=== PATIENT | male | born 1975 | race Caucasian/White ===

== ENCOUNTER 2021-09-22 21:32 | Inpatient (IN) | payer BC, SELFPAY ==
[2021-09-22 21:48] VITALS: BP 112/91; PULSE 121; RESP 18; TEMP 36.1; O2SAT 94; BMI 25.8
[2021-09-22 22:00] VITALS: BP 132/98; PULSE 120; RESP 18; O2SAT 95
[2021-09-22 22:30] VITALS: BP 116/83; PULSE 121; RESP 18; O2SAT 92
[2021-09-22] MEDS: 0.9 % SODIUM CHLORIDE 1000 ml 1,000 ML IV (23:10)
--- NOTE | 2021-09-22 23:12 | ED.ABDPAIN ---
HPI - Abdominal Pain General Chief Complaint: Abdominal Pain Stated Complaint: Abdominal Pain Time Seen by Provider: 09/22/21 23:07 History of Present Illness HPI narrative: This 46-year-old male comes in with severe upper epigastric abdominal pain radiating into his back. 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 He does have a history of alcohol use but denies any use recently. He states that pain began at 3:00 a.m. this morning, about 20 hours prior to arrival. Related Data Home Medications Medication Instructions Recorded Confirmed atorvastatin 20 mg tablet mg 09/22/21 citalopram 20 mg tablet mg 09/22/21 cyanocobalamin (vitamin B-12) mcg 09/22/21 1,000 mcg tablet [id number] cap PO 09/22/21 24,000-76,000-120,000 unit capsule,delayed rel (Creon) lisinopril 10 mg tablet mg 09/22/21 metformin 500 mg tablet mg 09/22/21 omeprazole 20 mg capsule,delayed mg 09/22/21 release omeprazole 40 mg capsule,delayed mg 09/22/21 release propranolol 80 mg capsule,24 mg PO 09/22/21 hr,extended release Allergies Allergy/AdvReac Type Severity Reaction Status Date / Time No Known Drug Allergies Allergy Verified 09/22/21 21:41 Review of Systems Status of ROS Reports: 10 or more systems reviewed and unremarkable except as noted in History and below Narrative Constitutional: No fevers, no weight gain or loss. Eyes: No discharge. No vision changes. HENT: No congestion, no sore throat, no ear pain. Cardiovascular: No chest pain, no palpitations. Respiratory: No shortness of breath, no wheezes, no cough. Gastrointestinal: No vomiting, no diarrhea. Severe upper epigastric abdominal pain radiating through to the back. Genitourinary: No dysuria, no hematuria. Musculoskeletal: Normal range of motion. Skin: No rashes, no pruritis. Neurological: No dizziness, weakness, sensory change, speech change. Endo/Heme/Allergies: No bruising or bleeding. No polydipsia. Pysch: no suicidality, no anxiety, no insomnia. All other systems reviewed and are negative. [facility] Medical History Anxiety CAD (coronary artery disease) Chronic pancreatitis Diabetes type 2, controlled Hyperlipidemia Hypertension Surgical History No significant past surgical history Social History Smoking Status: Current every day smoker What tobacco products do you use: cigarettes Second hand tobacco smoke exposure: No How often do you have a drink containing alcohol: 2-4 times a month How many standard drinks containing alcohol do you have on a typical day: 3 or 4 How often do you have six or more drinks on one occasion: Never AUDIT-C Alcohol total score: 3 Non-prescribed substance use: denies use Exam Narrative: Exam Narrative: Constitutional: Well-developed, well-nourished, no acute distress. HEENT: Normocephalic, atraumatic. Neck: Normal range of motion. Nontender. Supple. Heart: Regular. No murmurs. Normal rate. Intact distal pulses. Lungs: Clear to auscultation. No chest discomfort. No wheezes, rhonchi, or rales. Abdomen: Decreased bowel sounds. Severe tenderness in the upper abdomen radiating through to the back. No obvious rebound tenderness. Genitalia: Deferred. Back: No midline tenderness. Normal range of motion. Extremities: Normal range of motion. No injury. Skin: Intact. No rash. Warm. No erythema or pallor. Neurologic: No altered sensation. No weakness. Alert and oriented. Psychiatric: No suicidality. No anxiety or depression. No insomnia. Nursing notes and vitals signs are reviewed. Const: Vital Signs, click to edit/add: Vital Signs - 24 hr 09/22/21 21:48 09/22/21 22:00 09/22/21 22:30 Temperature 96.9 F L Pulse Rate [Pulse Oximeter] 121 H 120 H 121 H Respiratory Rate 18 18 18 Blood Pressure [Le ft Upper Arm] 112/91 H 132/98 H 116/83 Pulse Oximetry 94 95 92 09/22/21 23:30 Temperature Pulse Rate [Pulse Oximeter] 101 H Respiratory Rate 18 Blood Pressure [Le ft Upper Arm] 127/84 Pulse Oximetry 95 Course Vital Signs Vital signs: Initial Vital Signs Temperature 96.9 F L 09/22/21 21:48 Temperature Source Temporal Artery Scan 09/22/21 21:48 Pulse Rate 121 H 09/22/21 21:48 Respiratory Rate 18 09/22/21 21:48 Blood Pressure 112/91 H 09/22/21 21:48 Blood Pressure Mean 98 09/22/21 21:48 Pulse Oximetry 94 09/22/21 21:48 Oxygen Delivery Method 09/22/21 21:48 Vital Signs Temperature 96.9 F L 09/22/21 21:48 Pulse Rate 121 H 09/22/21 21:48 Respiratory Rate 18 09/22/21 21:48 Blood Pressure 112/91 H 09/22/21 21:48 Pulse Oximetry 94 09/22/21 21:48 Temperature 96.9 F L 09/22/21 21:48 Pulse Rate 101 H 09/22/21 23:30 Respiratory Rate 18 09/22/21 23:30 Blood Pressure 127/84 09/22/21 23:30 Pulse Oximetry 95 09/22/21 23:30 MDM - Abdominal Pain MDM Narrative Medical decision making narrative: This patient has a history of recurrent and chronic pancreatitis. His symptoms today feel like a flare-up of pancreatitis. He states that he does not normally take any pain medications. He denies using any street drugs or alcohol. An IV is established where he received a L of normal saline, 4 mg of Zofran, and 0.5 mg of Dilaudid. Later he received an additional dose of Dilaudid 0.5 mg. Lab results returned with several remarkable findings including lipase that around 4700, glucose at 2:20 a.m., and white count at 24,000. I did initiate a call to the overnight [facility] service for hospital admission. The returned call is pending at the end of my shift. The patient is agreeable to come into the hospital for further evaluation and treatment. Lab Data Labs: Lab Results 09/22/21 09/22/21 09/22/21 Range/Units 23:10 23:10 23:10 WBC 24.39 H (4.50-11.00) K/uL RBC 5.48 (4.30-5.90) m/uL Hgb 17.8 H (13.5-17.5) gm/dL Hct 51.2 (37.0-53.0) % MCV 93 (80-100) fL MCH 33 (26-34) pg MCHC 35 (32-36) gm/dL RDW Coeff of Marquise 12.6 (11.5-15.5) % Plt Count 459 H (140-440) K/uL Neut % (Auto) 86.8 H (42.0-72.0) % Lymph % (Auto) 7.0 L (20-44) % Louisa % (Auto) 5.0 (0.0-11.0) % Eos % (Auto) 0.0 (0.0-7.0) % Baso % (Auto) 0.1 (0.0-3.0) % Neut # (Auto) 21.20 H (1.7-7.0) K/uL Lymph # (Auto) 1.70 (0.90-2.90) K/uL Louisa # (Auto) 1.20 H (0.00-0.90) K/UL Eos # (Auto) 0.00 (0.00-0.50) K/uL Baso # (Auto) 0.00 (0.00-0.30) K/uL Abs Immat Gran (auto) 0.27 (0.00-0.30) K/uL Sodium 136 (135-149) mmol/L Potassium 5.2 H (3.6-5.1) mmol/L Chloride 100 (96-114) mmol/L Carbon Dioxide 21 (20-32) mmol/L BUN 34 H (5-24) mg/dL Creatinine 1.3 (0.5-1.5) mg/dL Estimated Creat Clear 69.49 Estimated GFR 68 ml/min Glucose 220 H (60-115) mg/dL Calcium 9.6 (8.4-10.6) mg/dL Total Bilirubin 1.1 (0.1-1.5) mg/dL Direct Bilirubin 0.4 (0.0-0.5) mg/dL AST 38 H (12-35) U/L ALT 74 H (4-50) U/L Alkaline Phosphatase 97 (40-150) U/L Total Protein 7.4 (6.0-8.3) g/dL Albumin 4.9 (3.3-5.0) g/dL Lipase 4716 H (23-300) U/L Discharge Plan Discharge Clinical Impression: Pancreatitis Patient Disposition: Admitted As Inpatient Condition: Unchanged Prescriptions: No Action metformin 500 mg tablet 0RF Label Comments: TAKE 1 TABLET BY MOUTH TWICE DAILY FOR 1 WEEK, THEN 2 TABLETS IN THE MORNING & 1 TABLET WITH SUPPER DAILY FOR A WEEK, & THEN 2 TABLETS TWICE DAILY WITH MEALS atorvastatin 20 mg tablet 0RF Label Comments: TAKE 1 TABLET BY MOUTH AT BEDTIME cyanocobalamin (vitamin B-12) 1,000 mcg tablet 0RF Label Comments: TAKE 1 TABLET BY MOUTH ONCE DAILY omeprazole 40 mg capsule,delayed release(DR/EC) 0RF citalopram 20 mg tablet 0RF Label Comments: TAKE 1/2 (ONE-HALF) TABLET BY MOUTH ONCE DAILY FOR 7 DAYS THEN 1 ONCE DAILY lisinopril 10 mg tablet 0RF Label Comments: TAKE 1 TABLET BY MOUTH ONCE DAILY propranolol 80 mg capsule,extended release 24 hr PO 0RF omeprazole 20 mg capsule,delayed release(DR/EC) 0RF Hold Instructions: taking 40mg Label Comments: TAKE 1 CAPSULE BY MOUTH ONCE DAILY 30 MINUTES PRIOR TO BREAKFAST Creon 24,000-76,000 -120,000 unit capsule,delayed release(DR/EC) PO 0RF Follow Up/Referrals: Provider,Not a Local [Primary Care Provider] -
[2021-09-22] MEDS: HYDROmorphone 0.5 mg/0.5 ml inj IVP (23:21)
[2021-09-22] MEDS: ONDANSETRON 2 MG/ML inj 4 MG IVP (23:23)
[2021-09-22 23:25] LABS: Basophils Percent Auto 0.1 % (0.0-3.0); Hematocrit 51.2 % (37.0-53.0); Hemoglobin* 17.8 gm/dL (13.5-17.5); Immature Granulocytes Abs Auto 0.27 K/uL (0.00-0.30); Mean Corpuscular HGB Conc 35 gm/dL (32-36); Mean Corpuscular Hemoglobin 33 pg (26-34); Mean Corpuscular Volume 93 fL (80-100); Neutrophils Percent Auto 86.8 % (42.0-72.0); Platelet Count* 459 K/uL (140-440); RDW Coefficient of Variation % 12.6 % (11.5-15.5); Red Blood Count 5.48 m/uL (4.30-5.90); White Blood Count* 24.39 K/uL (4.50-11.00)
[2021-09-22 23:27] LABS: Slide Review Reflex No
[2021-09-22 23:30] VITALS: BP 127/84; PULSE 101; RESP 18; O2SAT 95
[2021-09-22 23:40] LABS: Chloride* 100 mmol/L (96-114); Potassium* 5.2 mmol/L (3.6-5.1); Sodium* 136 mmol/L (135-149)
[2021-09-22 23:41] LABS: Albumin* 4.9 g/dL (3.3-5.0)
[2021-09-22 23:43] LABS: Blood Urea Nitrogen* 34 mg/dL (5-24); Carbon Dioxide* 21 mmol/L (20-32); Creatinine* 1.3 mg/dL (0.5-1.5); Est. Creatinine Clearance* 69.49; Estimated Glomerular Filt Rate 68 ml/min
[2021-09-22 23:44] LABS: Alkaline Phosphatase* 97 U/L (40-150); Aspartate Amino Transferase* 38 U/L (12-35); Bilirubin Direct* 0.4 mg/dL (0.0-0.5); Bilirubin Total* 1.1 mg/dL (0.1-1.5); Calcium* 9.6 mg/dL (8.4-10.6); Glucose* 220 mg/dL (60-115); Total Protein* 7.4 g/dL (6.0-8.3)
[2021-09-22 23:45] LABS: Alanine Aminotransferase* 74 U/L (4-50)
[2021-09-23 00:16] LABS: Lipase* 4716 U/L (23-300)
[2021-09-23] MEDS: HYDROmorphone 0.5 mg/0.5 ml inj IVP ×2 (01:01→02:34)
--- NOTE | 2021-09-23 01:28 | ED.NURSE ---
RN to RN report given
--- NOTE | 2021-09-23 01:41 | W.PC.EDHO ---
Primary Language: Preferred Language: Orientation Status: [x] Alert & Oriented [] Slight Confusion [] Known Dx Dementia Transfers By: [x] Assist of 1 [] Assist of 2 [] Lift Active Medications Discontinued Medications Generic Name Dose Route Start Last Admin Trade Name Moises PRN Reason Stop Dose Admin Hydromorphone HCl 0.5 mg 09/22/21 23:10 09/22/21 23:21 Hydromorphone 0.5 Mg/0.5 Ml Inj IVP 09/22/21 23:11 0.5 mg ONCE ONE Administration Hydromorphone HCl 0.5 mg 09/23/21 00:56 09/23/21 01:01 Hydromorphone 0.5 Mg/0.5 Ml Inj IVP 09/23/21 00:57 0.5 mg ONCE ONE Administration Sodium Chloride 1,000 mls @ 1,000 mls/hr 09/22/21 23:15 09/23/21 00:13 0.9 % Sodium Chloride 1000 Ml IV 09/23/21 00:14 Infused .Q1H AVERY Infusion Ondansetron HCl 4 mg 09/22/21 23:10 09/22/21 23:23 Ondansetron 2 Mg/Ml Inj IVP 09/22/21 23:11 4 mg ONCE ONE Administration Description of Symptoms ED Triage Present Problem Patient reports hx of chronic pancreatitis. Description Abdominal pain, bloating and nausea began yesterday at 3 AM. Reports he is unable to take in fluids. Pain Pain Description [Medial Sharp Abdomen] Pain Intensity 5 Pain Intensity 8 Pain Intensity 9 Pain Intensity 10 Pain Scale Used [Medial Numeric (1 - 10) Abdomen] Pain Scale Used Numeric (1 - 10) Pain Scale Used Numeric (1 - 10) Pain Scale Used Numeric (1 - 10) Pain Scale Used Numeric (1 - 10) Oxygen Administration Pulse Oximetry 95 Pulse Oximetry 92 Pulse Oximetry 95 Pulse Oximetry 94 Oxygen Delivery Method Room Air Oxygen Delivery Method Room Air Oxygen Delivery Method Room Air Oxygen Delivery Method Room Air
[2021-09-23 02:12] LABS: PCR FLU A Negative PCR FLU A (Negative); PCR FLU B Negative PCR FLU B (Negative)
[2021-09-23 02:19] LABS: SARS PCR* Negative SARS-CoV-2 (Negative)
[2021-09-23 02:51] VITALS: RESP 18
--- NOTE | 2021-09-23 02:53 | P.IMCN_ITS ---
Date of Consult Primary Care Provider: Not a Local Provider Consult Narrative Narrative: Wayne Phillips Hospitalist ADMISSION SUPPORT NOTE eHospitalist was contacted by Dr. Abarca with request of admission support. Chief complaint: Abdominal pain HPI: The patient reports that on Sunday he started having slight abdominal pain but did not think much of it as he has chronic abdominal pain related to his pancreatitis. However around 3 AM his abdominal pain worsened with radiation to the back. It was severe in intensity, occurring in lower abdomen, sharp, associated with vomiting. He reports that he felt bloated and full. In the ED he had elevated pancreatic enzymes and is being admitted for further treatment. Review of systems other than mentioned above is negative Home Medications/Pertinent Medical History/Pertinent Social History: Reviewed see EMR for details Review of Systems Status of ROS: Reports: 10 or more systems reviewed and unremarkable except as noted in History and below PFSH [facility] Medical History Anxiety CAD (coronary artery disease) Chronic pancreatitis Diabetes type 2, controlled Hyperlipidemia Hypertension Surgical History No significant past surgical history Social History Highest level of school completed/degree received: Associate degree: occupational, technical, vocational program Smoking Status: Current every day smoker What tobacco products do you use: cigarettes Second hand tobacco smoke exposure: No How often do you have a drink containing alcohol: 2-4 times a month Alcohol type: beer How many standard drinks containing alcohol do you have on a typical day: 3 or 4 How often do you have six or more drinks on one occasion: Never AUDIT-C Alcohol total score: 3 Non-prescribed substance use: denies use Caffeine: No service: No Meds Home Medications and Allergies Home Medications Medication Instructions Recorded Confirmed Type atorvastatin 20 mg tablet mg 09/22/21 History citalopram 20 mg tablet mg 09/22/21 History cyanocobalamin (vitamin B-12) mcg 09/22/21 History 1,000 mcg tablet [id number]-[id number] cap PO 09/22/21 History 24,000-76,000-120,000 unit capsule,delayed rel (Creon) lisinopril 10 mg tablet mg 09/22/21 History metformin 500 mg tablet mg 09/22/21 History omeprazole 20 mg capsule,delayed mg 09/22/21 History release omeprazole 40 mg capsule,delayed mg 09/22/21 History release propranolol 80 mg capsule,24 mg PO 09/22/21 History hr,extended release Allergies Allergy/AdvReac Type Severity Reaction Status Date / Time No Known Drug Allergies Allergy Verified 09/22/21 21:41 Exam Narrative: Exam Narrative: Exam (performed via interactive video with assistance of bedside nurse): General: Alert, cooperative, no acute distress HEENT: Oral mucosa pink and moist without erythema Lungs: Clear to auscultation bilaterally without crackle or wheeze CV: Regular rate and rhythm without loud murmur rub or gallop Abd: Bowel sounds hypoactive and does exhibit signs of pain with palpation in upper abdomen nausea and lower abdomen done by bedside nurse Ext: No pitting edema noted Skin: No rashes, bruises or lesions appreciated on gross visualization of exposed skin Neuro: Alert, oriented x 3. CN III -VII, XI, XII grossly intact, moves all extremities without any significant focal deficit appreciated Const: Vital Signs, click to edit/add: Vital Signs - 24 hr 09/22/21 21:48 09/22/21 22:00 09/22/21 22:30 Temperature 96.9 F L Pulse Rate [Pulse Oximeter] 121 H 120 H 121 H Respiratory Rate 18 18 18 Blood Pressure [Le ft Upper Arm] 112/91 H 132/98 H 116/83 Pulse Oximetry 94 95 92 09/22/21 23:30 Temperature Pulse Rate [Pulse Oximeter] 101 H Respiratory Rate 18 Blood Pressure [Le ft Upper Arm] 127/84 Pulse Oximetry 95 Labs Labs: Short CBC 09/22/21 Range/Units 23:10 WBC 24.39 H (4.50-11.00) K/uL Hgb 17.8 H (13.5-17.5) gm/dL Hct 51.2 (37.0-53.0) % Plt Count 459 H (140-440) K/uL BMP 09/22/21 23:10 Sodium 136 Potassium 5.2 H Chloride 100 Carbon Dioxide 21 BUN 34 H Creatinine 1.3 Glucose 220 H Calcium 9.6 Liver Function 09/22/21 Range/Units 23:10 Total Bilirubin 1.1 (0.1-1.5) mg/dL Direct Bilirubin 0.4 (0.0-0.5) mg/dL AST 38 H (12-35) U/L ALT 74 H (4-50) U/L Alkaline Phosphatase 97 (40-150) U/L Albumin 4.9 (3.3-5.0) g/dL Assessment and Plan Assessment and plan (1) Acute on chronic pancreatitis: Status: Acute Plan Assessment and Plan: 1. Acute on chronic pancreatitis-keep n.p.o., pain control with oxycodone and Dilaudid, precipitant unclear however patient does have the occasional beer about 6/month. Continue to monitor 2. Smoking habituation-nicotine patch 3. Dyslipidemia-stable continue statin once medication reconciled 4. Depression/anxiety-stable continue citalopram and propranolol once medications reconciled 5. Hypertension-stable on lisinopril. Consider discontinuing as this medication is class III as relates to inducing acute pancreatitis 6. DM2-sliding scale insulin 7. GERD-stable continue Protonix once medication reconciled 8. DVT prophylaxis-Lovenox 9. CODE STATUS full code discussed with patient Chart review was performed as well as evaluation of the patient via video. Thank you for involving ehospitalist. Please contact [phone] if further assistance is needed.
[2021-09-23 02:57] VITALS: BP 135/86; RESP 18; TEMP 36.6; O2SAT 96; BMI 25.4
[2021-09-23] MEDS: ENOXAPARIN 40 MG/0.4 ML INJ SUBCUT (04:02)
[2021-09-23] MEDS: OXYCODONE 5 MG TABLET PO (04:03)
[2021-09-23] MEDS: NICOTINE 21 MG PATCH 1 PATCH TRANSDERMA (04:04)
[2021-09-23] MEDS: PANTOPRAZOLE SODIUM 40 MG INJ IVP (04:04)
[2021-09-23] MEDS: 0.9 % SODIUM CHLORIDE 1000 ml 1,000 ML 150 ML IV ×2 (04:05→11:14)
--- NOTE | 2021-09-23 04:49 | PC.NURSE ---
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 Chief Complaint upper Abdominal pain. Pain controlled with Meds. Hypo active BS. Diet - Ice chips and sips. No N/V. Brian patch placed L shoulder. Afebrile.
[2021-09-23 07:00] VITALS: BP 136/84; RESP 20; TEMP 36.6; O2SAT 93
[2021-09-23] MEDS: OMEPRAZOLE 20 MG CAPSULE DR PO (08:45)
[2021-09-23] MEDS: 0.9 % SODIUM CHLORIDE 1000 ml 1,000 ML IV (08:48)
[2021-09-23] MEDS: CITALOPRAM HYDROBROMIDE 20 MG TABLET PO (09:32)
[2021-09-23] MEDS: SENNOSIDES 1 TAB TABLET PO (09:33)
[2021-09-23] MEDS: PROPRANOLOL ER 80 MG CAP PO (09:33)
[2021-09-23] MEDS: polyethylene glycoL 3350 17 GM PACK PO (09:33)
[2021-09-23 09:46] LABS: Basophils Percent Auto 0.2 % (0.0-3.0); Eosinophils Percent Auto 0.2 % (0.0-7.0); Hematocrit 43.2 % (37.0-53.0); Hemoglobin* 14.5 gm/dL (13.5-17.5); Immature Granulocytes Abs Auto 0.04 K/uL (0.00-0.30); Lymphocytes Percent Auto 10.6 % (20-44); Mean Corpuscular HGB Conc 34 gm/dL (32-36); Mean Corpuscular Hemoglobin 33 pg (26-34); Mean Corpuscular Volume 97 fL (80-100); Neutrophils Percent Auto 81.8 % (42.0-72.0); Platelet Count* 363 K/uL (140-440); RDW Coefficient of Variation % 12.9 % (11.5-15.5); Red Blood Count 4.45 m/uL (4.30-5.90); White Blood Count* 19.25 K/uL (4.50-11.00)
[2021-09-23 09:56] LABS: Magnesium* 1.4 mg/dL (1.5-2.6)
[2021-09-23 10:01] LABS: Slide Review Reflex No
[2021-09-23 10:09] LABS: Lipase* 2753 U/L (23-300)
[2021-09-23 11:00] VITALS: BP 120/74; RESP 26; TEMP 36.6; O2SAT 92
[2021-09-23] MEDS: PANCREALIPASE (12,38,60) CAP 1 CAP PO (12:03)
[2021-09-23] MEDS: METFORMIN 500 MG TABLET PO (12:03)
--- NOTE | 2021-09-23 14:15 | PM.DS1 ---
DS: Providers Provider Date Seen: 09/23/21 Date of admission: 09/23/21 01:18 Primary care physician: Not a Local Provider Admitting Clinician: Alan Abarca MD Attending Physician on discharge: Denny Levi MD Date of Discharge: 09/23/21 DS: Diagnosis Discharge Diagnosis (1) Acute on chronic pancreatitis: Status: Acute Problem details: 46-year-old male with severe history of chronic pancreatitis and episodic acute exacerbations. Admitted with onset of severe abdominal pain, vomiting and anorexia for about 1 day. He was treated with aggressive fluid rehydration, pain medication. This afternoon he reports feeling much better and want to eat. He tolerated a regular diet and is anxious to go home. His pain has almost entirely resolved. DS: Summary Hospital Course Hospital Course: 46-year-old male admitted with a 1 day history of severe abdominal pain radiating to his right midback. This was felt to be a recurrence of acute pancreatitis in the context of chronic pancreatitis. He has a history of alcohol-related chronic pancreatitis. He reports minimal alcohol use in the past several months, 6 drinks per month. He was given fluid rehydration and IV pain medications. He has now weaned off both fluids and pain medications. He is eating a normal diet. Status at Discharge Functional status at discharge: independent ambulation Overall status at discharge: patient is back to baseline Time Spent with Patient Time attestation: Total time spent providing and/or coordinating discharge services: Time spent: Greater than 30 minutes Exam Narrative: Exam Narrative: He is alert and appears in no distress. Speech is normal. Eyes normal. Sclerae nonicteric. Oral mucosa is normal. Neck is supple without mass or adenopathy. Respirations are clear to auscultation. Cardiovascular: S1, S2, regular rate and rhythm. No murmur gallop or rub. Abdomen: Bowel sounds active. Abdomen is soft he has minimal epigastric tenderness and some fullness there. Extremities without significant edema. he has good peripheral pulses. He moves all 4 extremities well. Skin is without rash. Const: Vital Signs, click to edit/add: Vital Signs - 24 hr 09/22/21 21:48 09/22/21 22:00 09/22/21 22:30 Temperature 96.9 F L Pulse Rate [Pulse Oximeter] 121 H 120 H 121 H Respiratory Rate 18 18 18 Blood Pressure [Le ft Upper Arm] 112/91 H 132/98 H 116/83 Blood Pressure [Ri ght Arm] Pulse Oximetry 94 95 92 09/22/21 23:30 09/23/21 02:51 09/23/21 02:57 Temperature 98 F Pulse Rate [Pulse Oximeter] 101 H Respiratory Rate 18 18 18 Blood Pressure [Le ft Upper Arm] 127/84 Blood Pressure [Ri ght Arm] 135/86 Pulse Oximetry 95 96 09/23/21 07:00 09/23/21 11:00 Temperature 97.8 F 97.9 F Pulse Rate [Pulse Oximeter] Respiratory Rate 20 26 H Blood Pressure [Le ft Upper Arm] Blood Pressure [Ri ght Arm] 136/84 120/74 Pulse Oximetry 93 92 Documenting provider has reviewed patient's vital signs: yes DS: Data Data Completed and Pending Labs on day of discharge: Labs from last 24 hours 09/23/21 09/23/21 09/23/21 09:30 09:30 01:10 WBC 19.25 H RBC 4.45 Hgb 14.5 Hct 43.2 MCV 97 MCH 33 MCHC 34 RDW Coeff of Marquise 12.9 Plt Count 363 Neut % (Auto) 81.8 H Lymph % (Auto) 10.6 L Steele % (Auto) 7.0 Eos % (Auto) 0.2 Baso % (Auto) 0.2 Neut # (Auto) 15.70 H Lymph # (Auto) 2.00 Steele # (Auto) 1.30 H Eos # (Auto) 0.00 Baso # (Auto) 0.00 Abs Immat Gran (auto) 0.04 Sodium Potassium Chloride Carbon Dioxide BUN Creatinine Estimated Creat Clear Estimated GFR Glucose Calcium Magnesium 1.4 L Total Bilirubin Direct Bilirubin AST ALT Alkaline Phosphatase Total Protein Albumin Lipase 2753 H SARS-CoV-2 (PCR) Negative SARS-CoV-2 Influenza Type A (PCR) Negative PCR FLU A Influenza Type B (PCR) Negative PCR FLU B 09/22/21 09/22/21 09/22/21 23:10 23:10 23:10 WBC 24.39 H RBC 5.48 Hgb 17.8 H Hct 51.2 MCV 93 MCH 33 MCHC 35 RDW Coeff of Marquise 12.6 Plt Count 459 H Neut % (Auto) 86.8 H Lymph % (Auto) 7.0 L Steele % (Auto) 5.0 Eos % (Auto) 0.0 Baso % (Auto) 0.1 Neut # (Auto) 21.20 H Lymph # (Auto) 1.70 Steele # (Auto) 1.20 H Eos # (Auto) 0.00 Baso # (Auto) 0.00 Abs Immat Gran (auto) 0.27 Sodium 136 Potassium 5.2 H Chloride 100 Carbon Dioxide 21 BUN 34 H Creatinine 1.3 Estimated Creat Clear 69.49 Estimated GFR 68 Glucose 220 H Calcium 9.6 Magnesium Total Bilirubin 1.1 Direct Bilirubin 0.4 AST 38 H ALT 74 H Alkaline Phosphatase 97 Total Protein 7.4 Albumin 4.9 Lipase 4716 H SARS-CoV-2 (PCR) Influenza Type A (PCR) Influenza Type B (PCR) Discharge Plan Discharge Disposition: Home, Self-Care Date of Admission: 09/23/21 01:18 Attending Provider on Discharge: Denny Levi Primary Care Provider: Provider,Not a Local Condition: Unchanged Anticipated Discharge Date/Time: 09/23/21 14:00 Discharge Medications: Continued metformin 500 mg tablet 1,000 mg PO BIDWM 0RF atorvastatin 20 mg tablet 20 mg PO HS 0RF cyanocobalamin (vitamin B-12) 1,000 mcg tablet 1,000 mcg PO DAILY 0RF omeprazole 40 mg capsule,delayed release(DR/EC) 40 mg PO DAILY 0RF citalopram 20 mg tablet 20 mg PO DAILY 0RF lisinopril 10 mg tablet 10 mg PO DAILY 0RF propranolol 80 mg capsule,extended release 24 hr 80 mg PO DAILY 0RF Creon 24,000-76,000 -120,000 unit capsule,delayed release(DR/EC) 2 cap PO TIDWM 0RF Rx Instructions: PLUS 1 CAPSULE WITH SNACKS aspirin [Adult Aspirin Regimen] 81 mg tablet,delayed release (DR/EC) 81 mg PO DAILY 0RF multivitamin Tablet 1 tab PO DAILY 0RF Discharge Orders: Discharge Order (Routine); Ordered 09/23/21 Ordered By: Denny Levi Patient Education: Pancreatitis (DC) Activity Restrictions/Additional Instructions: Smoking and drinking alcohol are poison to your pancreas. These are not safe even in moderation. Activity Level: No Restrictions Discharge Diet: Diabetic Follow Up Appointments: Provider,Not a Local [Primary Care Provider] - (Follow-up with your doctor as needed.) Forms: [employer] Info Instructions
--- NOTE | 2021-09-23 14:15 | PC.NURSE ---
End of Shift: Patient pleasant and cooperative. Patient vitally stable, lungs clear, BS WNL, IV removed, catheter intact. Patient rates pain at most 2/10, no pain med given. Patient tolerating regular diet, urinating, and had 1 mod BM. Patient is independent in room. Patient signed signed belongings sheet and discharge form. Patient had no further questions regarding discharge. Patient left the floor at 1402 by foot to meet his ride.
[2021-09-23 14:21] LABS: Albumin* 3.4 g/dL (3.3-5.0); Chloride* 105 mmol/L (96-114); Potassium* 4.5 mmol/L (3.6-5.1); Sodium* 132 mmol/L (135-149)
[2021-09-23 14:23] LABS: Aspartate Amino Transferase* 32 U/L (12-35); Bilirubin Total* 0.7 mg/dL (0.1-1.5); Carbon Dioxide* 23 mmol/L (20-32); Creatinine* 1.1 mg/dL (0.5-1.5); Est. Creatinine Clearance* 79.45; Estimated Glomerular Filt Rate 83 ml/min
[2021-09-23 14:24] LABS: Alanine Aminotransferase* 43 U/L (4-50); Alkaline Phosphatase* 65 U/L (40-150); Blood Urea Nitrogen* 46 mg/dL (5-24); Glucose* 124 mg/dL (60-115); Total Protein* 6.1 g/dL (6.0-8.3)
--- NOTE | 2021-09-23 14:32 | P.IMHP_ITS ---
Hospitalist- H&P: HPI History of Present Illness Date Seen: 09/23/21 Chief complaint: Abdominal Pain Narrative: Boris Steward is a 46 year old male admitted to the hospital for evaluation and treatment of severe epigastric abdominal pain that started about 3:00 a.m. on , 1.5 days ago. Patient has history of chronic pancreatitis thought secondary to alcohol abuse. He reports minimal alcohol use, up to 6 drinks per month, but is having recurrent hospitalizations and emergency department visits for pancreatitis over the past year. He has been admitted to [facility] Emergency Department last October and February for pancreatitis. CT scans have shown evidence of pancreatitis as well as duodenitis. The duodenitis is thought likely to secondary to inflammation from the pancreas rather than a primary duodenal inflammation or infection. In the past he has also been hospitalized at [facility]. He has established care with [place] [facility] for management of his pancreatitis. 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 At that time things are going fairly well for him he has been managed with Creon for his pancreatic insufficiency. He is also now being managed as a diabetic patient with metformin. He has not yet requiring insulin. In March of this year he had endoscopic biopsy of his pancreas . Endoscopic findings were normal stomach, and he will and what numb. Endoscopic ultrasound showed severe chronic pancreatitis throughout the pancreas. Microlithiasis in the gallbladder was seen pathology showed small amount of benign pancreatic tissue with focal fibrosis and no malignancy. Review of Systems Narrative: Patient reports he has been doing quite well up until the last 2 days. He reports he always has a little bit of abdominal pain but that is manageable for him. He had been having some problems with diarrhea and was started on Creon which seem to be helping. He has been working on cutting back on his alcohol consumption. He has not had any other symptoms of illness. 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 Hyperlipidemia Hypertension Pancreatic insufficiency Surgical History No significant past surgical history Social History Highest level of school completed/degree received: Associate degree: occupational, technical, vocational program Smoking Status: Current every day smoker What tobacco products do you use: cigarettes Second hand tobacco smoke exposure: No How often do you have a drink containing alcohol: 2-4 times a month Alcohol type: beer How many standard drinks containing alcohol do you have on a typical day: 3 or 4 How often do you have six or more drinks on one occasion: Never AUDIT-C Alcohol total score: 3 Non-prescribed substance use: denies use Caffeine: No service: No Meds Home Medications and Allergies Home Medications Medication Instructions Recorded Confirmed Type atorvastatin 20 mg tablet 20 mg PO HS 09/22/21 09/23/21 History citalopram 20 mg tablet 20 mg PO DAILY 09/22/21 09/23/21 History cyanocobalamin (vitamin B-12) 1,000 mcg PO DAILY 09/22/21 09/23/21 History 1,000 mcg tablet [id number] 2 cap PO TIDWM 09/22/21 09/23/21 History 24,000-76,000-120,000 unit capsule,delayed rel (Creon) lisinopril 10 mg tablet 10 mg PO DAILY 09/22/21 09/23/21 History metformin 500 mg tablet 1,000 mg PO BIDWM 09/22/21 09/23/21 History omeprazole 40 mg capsule,delayed 40 mg PO DAILY 09/22/21 09/23/21 History release propranolol 80 mg capsule,24 80 mg PO DAILY 09/22/21 09/23/21 History hr,extended release aspirin 81 mg tablet,delayed 81 mg PO DAILY 09/23/21 09/23/21 History release (Adult Aspirin Regimen) multivitamin 1 tab PO DAILY 09/23/21 09/23/21 History Allergies Allergy/AdvReac Type Severity Reaction Status Date / Time No Known Drug Allergies Allergy Verified 09/22/21 21:41 Exam Narrative: Exam Narrative: He is alert and appears in no distress. He gives his own history with good detail. Head is normal. Eyes are normal. Sclerae nonicteric. Oropharynx with dry mucous membranes. No other mucosal abnormalities. Neck is supple without mass or adenopathy. There is no tenderness. Respirations are clear to auscultation. Good breath sounds in all lung major. Breathing is unlabored. Cardiovascular: S1, S2, regular rate and rhythm. No murmur gallop or rub. Abdomen: Bowel sounds active. Abdomen is soft with mild epigastric tenderness. There is fullness in his right upper quadrant without a definite palpable liver edge. Extremities with intact pulses and no edema. He moves all 4 extremities well. Skin is without rash. No jaundice. Const: Vital Signs, click to edit/add: Vital Signs - 24 hr 09/22/21 21:48 09/22/21 22:00 09/22/21 22:30 Temperature 96.9 F L Pulse Rate [Pulse Oximeter] 121 H 120 H 121 H Respiratory Rate 18 18 18 Blood Pressure [Le ft Upper Arm] 112/91 H 132/98 H 116/83 Blood Pressure [Ri ght Arm] Pulse Oximetry 94 95 92 09/22/21 23:30 09/23/21 02:51 09/23/21 02:57 Temperature 98 F Pulse Rate [Pulse Oximeter] 101 H Respiratory Rate 18 18 18 Blood Pressure [Le ft Upper Arm] 127/84 Blood Pressure [Ri ght Arm] 135/86 Pulse Oximetry 95 96 09/23/21 07:00 09/23/21 11:00 Temperature 97.8 F 97.9 F Pulse Rate [Pulse Oximeter] Respiratory Rate 20 26 H Blood Pressure [Le ft Upper Arm] Blood Pressure [Ri ght Arm] 136/84 120/74 Pulse Oximetry 93 92 Documenting provider has reviewed patient's vital signs: yes Hospitalist - H&P: Result Labs Labs: Short CBC 09/22/21 09/23/21 Range/Units 23:10 09:30 WBC 24.39 H 19.25 H (4.50-11.00) K/uL Hgb 17.8 H 14.5 (13.5-17.5) gm/dL Hct 51.2 43.2 (37.0-53.0) % Plt Count 459 H 363 (140-440) K/uL BMP 09/22/21 09/23/21 23:10 09:30 Sodium 136 132 L Potassium 5.2 H 4.5 Chloride 100 105 Carbon Dioxide 21 23 BUN 34 H 46 H Creatinine 1.3 1.1 Glucose 220 H 124 H Calcium 9.6 8.0 L Liver Function 09/22/21 09/23/21 Range/Units 23:10 09:30 Total Bilirubin 1.1 0.7 (0.1-1.5) mg/dL Direct Bilirubin 0.4 (0.0-0.5) mg/dL AST 38 H 32 (12-35) U/L ALT 74 H 43 (4-50) U/L Alkaline Phosphatase 97 65 (40-150) U/L Albumin 4.9 3.4 (3.3-5.0) g/dL Assessment and Plan Assessment and plan (1) Acute on chronic pancreatitis: Problem comment: 46-year-old male with severe history of chronic pancreatitis and episodic acute exacerbations. Admitted with onset of severe abdominal pain, vomiting and anorexia for about 1 day. He was treated with aggressive fluid rehydration, pain medication. This afternoon he reports feeling much better and want to eat. He tolerated a regular diet and is anxious to go home. His pain has almost entirely resolved. Status: Acute (2) Diabetes type 2, controlled: Problem comment: On metformin Status: Acute (3) Pancreatic insufficiency: Problem comment: On Creon Status: Acute
== END 2021-09-23 14:02 | disposition home or self-care (01) | DRG 282 ==
LOC: ED 09-23 01:06 → MEDSURG 09-23 01:22
PROVIDERS: Family Medicine; Admitting Provider Emergency Medicine Emergency Medical Services; Emergency Provider Emergency Medicine Emergency Medical Services; Visit Provider Family Medicine
DX: K85.20 Alcohol induced acute pancreatitis without necrosis or infection (principal); K86.0 Alcohol-induced chronic pancreatitis; K29.80 Duodenitis without bleeding; F10.10 Alcohol abuse, uncomplicated; F41.8 Other specified anxiety disorders; F17.210 Nicotine dependence, cigarettes, uncomplicated; I25.10 Atherosclerotic heart disease of native coronary artery without angina pectoris; E11.9 Type 2 diabetes mellitus without complications; I10 Essential (primary) hypertension; E78.5 Hyperlipidemia, unspecified; K21.9 Gastro-esophageal reflux disease without esophagitis
CPT/HCPCS: 36415; 80048; 80053; 80076; 82947; 83690; 83735; 85025; 87502; 87635; 99284; 99285; A9270; C9113; J1170; J1650; J2405; J7030; S4990

== ENCOUNTER 2021-11-25 07:59 | Emergency (ER) | payer BC, SELFPAY ==
[2021-11-25] VITALS (7 sets, daily range): BP systolic 106–132; BP diastolic 55–87; PULSE 69–84; RESP 18; TEMP 36.1; O2SAT 96–98; BMI 25.1
--- NOTE | 2021-11-25 08:23 | ED.GENADULT ---
HPI - General Adult General Time Seen by Provider: 08:23 Date Seen: 11/25/21 Chief complaint: Abdominal Pain Stated complaint: Pancreatitis flare up Time Seen by Provider: 11/25/21 08:23 Source: patient, RN notes reviewed and old records reviewed Mode of arrival: ambulatory Limitations: no limitations History of Present Illness HPI narrative: Patient is a 46-year-old male coming in with abdominal pain with a component of back pain. Symptoms have been present for about 2-3 weeks. He will note a burning pain a couple inches to the right of this fine just underneath the rib area and when that starts he will get a gnawing type pain in his stomach. When this pain comes, he can not tell if he is hungry sometimes but he has noted sometimes even drinking water will make symptoms worse. He will feel bloated. He has noticed no vomiting with this. No change in stools, no urinary symptoms. He has noted no fever. This morning it was bothering him, about 615 he took 3 Tylenol and then about 645 took 2 tramadol. He has a kids club attendant for chronic pancreatitis. His kids club attendant did prescribe him some tramadol. This is a bit different than his typical pancreatitis. He will have acute on chronic spells. He is a bit worried as he is not had some imaging for a long time. He states he had maybe a small cyst in his pancreas that enlarged but went back down. He is wondering if he should have some imaging. He still has a gallbladder and notes that they have not found the gallbladder to be a source of his pancreatitis to date. He last had alcohol, 2 beers over a week ago. He does not need anything for pain at this point. Just resting he is feeling a bit better. He has noted no rash. Related Data Home Medications Medication Instructions Recorded Confirmed atorvastatin 20 mg tablet 20 mg PO HS 09/22/21 09/23/21 citalopram 20 mg tablet 20 mg PO DAILY 09/22/21 09/23/21 cyanocobalamin (vitamin B-12) 1,000 mcg PO DAILY 09/22/21 09/23/21 1,000 mcg tablet [id number] 2 cap PO TIDWM 09/22/21 09/23/21 24,000-76,000-120,000 unit capsule,delayed rel (Creon) lisinopril 10 mg tablet 10 mg PO DAILY 09/22/21 09/23/21 metformin 500 mg tablet 1,000 mg PO BIDWM 09/22/21 09/23/21 omeprazole 40 mg capsule,delayed 40 mg PO DAILY 09/22/21 09/23/21 release propranolol 80 mg capsule,24 80 mg PO DAILY 09/22/21 09/23/21 hr,extended release aspirin 81 mg tablet,delayed 81 mg PO DAILY 09/23/21 09/23/21 release (Adult Aspirin Regimen) multivitamin 1 tab PO DAILY 09/23/21 09/23/21 Allergies Allergy/AdvReac Type Severity Reaction Status Date / Time No Known Drug Allergies Allergy Verified 11/25/21 09:24 Review of Systems Status of ROS: Reports: 10 or more systems reviewed and unremarkable except as noted in History and below [facility] Medical History Anxiety CAD (coronary artery disease) Chronic pancreatitis Diabetes type 2, controlled 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 Hyperlipidemia Hypertension Pancreatic insufficiency Pancreatitis Surgical History No significant past surgical history Social History Highest level of school completed/degree received: Associate degree: occupational, technical, vocational program Smoking Status: Current every day smoker What tobacco products do you use: cigarettes Second hand tobacco smoke exposure: No How often do you have a drink containing alcohol: 2-4 times a month Alcohol type: beer How many standard drinks containing alcohol do you have on a typical day: 3 or 4 How often do you have six or more drinks on one occasion: Never AUDIT-C Alcohol total score: 3 Non-prescribed substance use: denies use Caffeine: No service: No Exam Const: Vital Signs, click to edit/add: Vital Signs - 24 hr 11/25/21 08:14 Temperature 97.0 F L Pulse Rate [Right Pulse Oximeter] 84 Respiratory Rate 18 Blood Pressure [Ri ght Upper Arm] 132/87 Pulse Oximetry 98 Oxygen Delivery Me thod Room Air Documenting provider has reviewed patient's vital signs: yes Common normals: no apparent distress, average body habitus, oriented x3, no limitations, healthy appearing, alert and well nourished General appearance: cooperative, comfortable and well kempt HENMT: Common normals: normocephalic, head/scalp atraumatic, hearing grossly normal bilaterally, external ears normal, external nose normal, nasal mucous membranes and turbinates normal, moist oral mucous membranes, oropharynx normal, dentition normal and gingiva normal Head and scalp: normocephalic and atraumatic Nose: external nose normal and nasal mucous membranes and turbinates normal External ear: external ears normal Eye: Common normals: PERRL, EOMs intact bilaterally, conjunctivae normal and no scleral icterus Conjunctiva: conjunctiva(e) normal Pupil: PERRL Neck & C-Spine: Common normals: full ROM, no lymphadenopathy, supple, no meningeal signs, no JVD and thyroid normal Thyroid: thyroid normal Chest: Common normals: inspection of chest normal and palpation of chest normal Resp: Common normals: normal respiratory effort, no retractions, no use of accessory muscles and clear to auscultation bilaterally Auscultation: clear to auscultation bilaterally Cardio: Common normals: no JVD, regular rate, regular rhythm, S1 normal heart sound, S2 normal heart sound, no gallops, no clicks, no murmurs, no rub and peripheral pulses 2+ throughout Rate: regular rate Rhythm: regular rhythm Heart sounds: S1 normal and S2 normal Peripheral pulses: pulses 2+ throughout GI: Common normals: Normal to inspection, nondistended, normoactive bowel sounds present, soft to palpation, no hepatosplenomegaly, no masses and no bruits Palpation: soft and no hepatosplenomegaly Other: Tender right upper quadrant with a bit of guarding but no rebound. Some mild right CVA tenderness. Back & Pelvis: Common normals: thoracic and lumbar spine normal to inspection and no thoracic nor lumbar tenderness Extremity: Common normals: normal to inspection, full ROM, normal capillary refill, no joint enlargement, no clubbing, cyanosis or edema, no calf tenderness and no pedal edema Neuro: Common normals: oriented x3 Sensorium/orientation: alert Meningeal signs: no meningeal signs Psych: Appearance: well kempt Skin: Narrative: No rash or abnormality noted on inspection of his skin on the chest or abdomen/back. Course Course Hospital Course: We will stab lotion IV and obtain appropriate blood work. Am going to proceed with CT abdomen pelvis with IV contrast as well as the right upper quadrant ultrasound. It is possible that biliary abnormalities are play here. This could be more of a chronic pancreatitis flare. The imaging will be intra girl in really doubt any concerning changes with the pancreas, do feel we need ultrasound of his gallbladder given this type of pain his change an on exam he is clinically tender in the right upper quadrant. It is possible that this could be a new musculoskeletal type pain for him but do feel it is likely more abdominal pathology. Reevaluation(s) Reevaluation #1: Have reviewed with patient that Dr. Last recommended hospitalization with supportive cares and transfer if he was not improving. Patient states just jnoathan here he is really not having much pain. He states he needs a cigarette, wants something to drink and eat. Will initiate a L of IV fluids, allow him clear liquids and see how he does. He really ultimately would like to go home. If his pain is not worsening with oral intake, I do think it is reasonable for him to try outpatient management and follow-up with the GI outpatient. He states he still does not need anything for pain. Time: 11:25 Reevaluation #2: Patient has been tolerating oral liquids here, bland diet. It did not escalate his symptomatology at all. He is requesting to go home. He does have previously scheduled follow-up with his kids club attendant January 09 and a colonoscopy on the . He may need to try to move up his GI visit but he is comfortable contacting their office. Time: 13:58 Consultations Consultation #1: Spoke with our surgeon on-call regarding this case. Needed her assistance as to why today should do next with this patient. She helped me review the case. She believes they should talk to GI. She thinks the pseudocyst is likely causing some of his issues with the pancreatitis. If the GI people think that this might be gallstone pancreatitis, she felt that maybe he might benefit from having an ERCP 1st prior to cholecystectomy. This is a person that she thinks might benefit from transfer if a cholecystectomy is needed. She was able to see in the records that he had been to [facility] in March of 2021. He had had an MRCP done a year ago and there was a question of a mass in the pancreatic head. He had had a follow-up endoscopic ultrasound done and there was only changes of chronic pancreatitis, no mass. He had an MRI done of his pancreas. He had had cytology that just showed necrotic tissue. Dr. Last was the specialist whom he had seen there. Time: 10:06 Consultation #2: Dr. Last was paged twice before we did get a call back. He was initially paged leave at 10:00 a.m., re-paged later and I subsequently spoke with him at 11:20 a.m.. He recommended conservative management here with IV fluids and IV pain management. If patient was not settling down with this approach or there were further complications, transfer then could be considered. Time: 11:20 Vital Signs Vital signs: Initial Vital Signs Temperature 97.0 F L 11/25/21 08:14 Temperature Source Temporal Artery Scan 11/25/21 08:14 Pulse Rate 84 11/25/21 08:14 Respiratory Rate 18 11/25/21 08:14 Blood Pressure 132/87 11/25/21 08:14 Blood Pressure Mean 102 11/25/21 08:14 Pulse Oximetry 98 11/25/21 08:14 Oxygen Delivery Method 11/25/21 08:14 Vital Signs Temperature 97.0 F L 11/25/21 08:14 Pulse Rate 84 11/25/21 08:14 Respiratory Rate 18 11/25/21 08:14 Blood Pressure 132/87 11/25/21 08:14 Pulse Oximetry 98 11/25/21 08:14 Oxygen Delivery Method 11/25/21 08:14 Temperature 97.0 F L 11/25/21 08:14 Pulse Rate 84 11/25/21 08:14 Respiratory Rate 18 11/25/21 08:14 Blood Pressure 132/87 11/25/21 08:14 Pulse Oximetry 98 11/25/21 08:14 Oxygen Delivery Method 11/25/21 08:14 Medical Decision Making Lab Data Lab results reviewed: Yes I reviewed the patient's lab results Labs: Lab Results 11/25/21 11/25/21 11/25/21 Range/Units 08:31 08:40 08:40 WBC 13.58 H (4.50-11.00) K/uL RBC 4.07 L (4.30-5.90) m/uL Hgb 13.1 L (13.5-17.5) gm/dL Hct 39.8 (37.0-53.0) % MCV 98 (80-100) fL MCH 32 (26-34) pg MCHC 33 (32-36) gm/dL RDW Coeff of Marquise 14.5 (11.5-15.5) % Plt Count 487 H (140-440) K/uL Neut % (Auto) 73.0 H (42.0-72.0) % Lymph % (Auto) 18.9 L (20-44) % [place] % (Auto) 5.0 (0.0-11.0) % Eos % (Auto) 2.1 (0.0-7.0) % Baso % (Auto) 0.6 (0.0-3.0) % Neut # (Auto) 9.90 H (1.7-7.0) K/uL Lymph # (Auto) 2.60 (0.90-2.90) K/uL [place] # (Auto) 0.70 (0.00-0.90) K/UL Eos # (Auto) 0.30 (0.00-0.50) K/uL Baso # (Auto) 0.10 (0.00-0.30) K/uL Abs Immat Gran (auto) 0.06 (0.00-0.30) K/uL Sodium 140 (135-149) mmol/L Potassium 4.3 (3.6-5.1) mmol/L Chloride 109 (96-114) mmol/L Carbon Dioxide 22 (20-32) mmol/L BUN 17 (5-24) mg/dL Creatinine 0.6 (0.5-1.5) mg/dL Estimated Creat Clear 145.67 Estimated GFR 119 ml/min Glucose 147 H (60-115) mg/dL Lactate (0.5-1.9) mmol/L Calcium 9.2 (8.4-10.6) mg/dL Total Bilirubin 0.3 (0.1-1.5) mg/dL AST 19 (12-35) U/L ALT 14 (4-50) U/L Alkaline Phosphatase 121 (40-150) U/L C-Reactive Protein 5.0 H (0.5-1.0) mg/dL Total Protein 7.0 (6.0-8.3) g/dL Albumin 4.1 (3.3-5.0) g/dL Lipase 788 H (23-300) U/L Urine Color Yellow (Yellow) Urine Appearance Clear (Clear) Urine pH 6.0 (5.0-8.5) Ur Specific [place] 1.025 (1.000-1.030) Urine Protein 1+ A (Negative) Urine Glucose (UA) Negative (Negative) Urine Ketones Trace A (Negative) Urine Blood 2+ A (Negative) Urine Nitrite Negative (Negative) Urine Bilirubin 1+ A (Negative) Urine Urobilinogen 0.2 (0.2-1.0) Ur Leukocyte Esterase Negative (Negative) Urine RBC 10-25 A (0-2) Urine WBC 0-2 (0-5) Ur Squamous Epith Cells None (None-Few) Urine Bacteria None (None) Ethyl Alcohol < 0.01 L (0.01-0.03) % SARS-CoV-2 (PCR) (Negative) 11/25/21 11/25/21 Range/Units 08:40 11:29 WBC (4.50-11.00) K/uL RBC (4.30-5.90) m/uL Hgb (13.5-17.5) gm/dL Hct (37.0-53.0) % MCV (80-100) fL MCH (26-34) pg MCHC (32-36) gm/dL RDW Coeff of Marquise (11.5-15.5) % Plt Count (140-440) K/uL Neut % (Auto) (42.0-72.0) % Lymph % (Auto) (20-44) % [place] % (Auto) (0.0-11.0) % Eos % (Auto) (0.0-7.0) % Baso % (Auto) (0.0-3.0) % Neut # (Auto) (1.7-7.0) K/uL Lymph # (Auto) (0.90-2.90) K/uL [place] # (Auto) (0.00-0.90) K/UL Eos # (Auto) (0.00-0.50) K/uL Baso # (Auto) (0.00-0.30) K/uL Abs Immat Gran (auto) (0.00-0.30) K/uL Sodium (135-149) mmol/L Potassium (3.6-5.1) mmol/L Chloride (96-114) mmol/L Carbon Dioxide (20-32) mmol/L BUN (5-24) mg/dL Creatinine (0.5-1.5) mg/dL Estimated Creat Clear Estimated GFR ml/min Glucose (60-115) mg/dL Lactate 1.6 (0.5-1.9) mmol/L Calcium (8.4-10.6) mg/dL Total Bilirubin (0.1-1.5) mg/dL AST (12-35) U/L ALT (4-50) U/L Alkaline Phosphatase (40-150) U/L C-Reactive Protein (0.5-1.0) mg/dL Total Protein (6.0-8.3) g/dL Albumin (3.3-5.0) g/dL Lipase (23-300) U/L Urine Color (Yellow) Urine Appearance (Clear) Urine pH (5.0-8.5) Ur Specific [place] (1.000-1.030) Urine Protein (Negative) Urine Glucose (UA) (Negative) Urine Ketones (Negative) Urine Blood (Negative) Urine Nitrite (Negative) Urine Bilirubin (Negative) Urine Urobilinogen (0.2-1.0) Ur Leukocyte Esterase (Negative) Urine RBC (0-2) Urine WBC (0-5) Ur Squamous Epith Cells (None-Few) Urine Bacteria (None) Ethyl Alcohol (0.01-0.03) % SARS-CoV-2 (PCR) Negative SARS-CoV-2 (Negative) Imaging Data CT scan - abdomen: Attestation: I have reviewed the pertinent imaging results. Radiologist's impression: Patient: ASHLYN MILLIGAN Facility:?[facility] Patient ID:?[id number] Site Patient ID:?[id number]. Site :?[id number] Study:?CT Abdomen/Pelvis W/ 81CC [id number]/16/2022 9:30:32 AM Ordering Physician:Barry Murphy Final Report: INDICATION: Pancreatitis with back pain. COMPARISON: 02/11/2021 TECHNIQUE: CT examination of the abdomen and pelvis was performed following the uneventful intravenous administration of 81 cc of Isovue 3 7. Thin section axial images were obtained from the lung bases through the pubic symphysis. Oral contrast was not administered. Please note that all CT scans at this facility use dose modulation, iterative reconstruction, and/or weight-based dosing when appropriate to reduce radiation dose to as low as reasonably achievable. FINDINGS: LUNG BASES: The lung bases as visualized appear normal.The heart size is normal at the lung bases. LIVER/BILIARY SYSTEM:Hepatic steatosis. Borderline intrahepatic and extrahepatic biliary ductal dilatation. This is probably due to low grade obstruction due to the pancreatic head finding described below. This is similar to the prior study. There is fluid around the gallbladder which is probably secondary to the adjacent pancreatic process. No visible gallstones.The gallbladder is similar to the prior study. ADRENALS: Normal KIDNEYS, URETERS and BLADDER:The kidneys appear normal. No visible mass, calculus or hydronephrosis. The ureters and bladder as visualized appear normal. SPLEEN:Normal appearance. The splenic vein is patent PANCREAS: The pancreas is abnormal. There are moderate inflammatory changes consistent with acute pancreatitis. There also findings of chronic pancreatitis. Specifically, there is a multiloculated cystic mass in the inferior pancreatic head which is more prominent than was February 11, 2021. This measures approximately 3.3 x 3.4 centimeters from axial image 59. This likely represents a series of pseudocysts. There is also mild pancreatic biliary ductal dilatation which is similar. Fluid wraps around the pancreatic body and tail. This has a wall and is probably a pseudocyst. Best seen on coronal image 40 where it measures about 8.7 x 2.0 by 2.8 centimeters. RETROPERITONEUM and MESENTERY: There is no mass, adenopathy or aortic aneurysm. Atherosclerotic vascular calcifications GASTROINTESTINAL SYSTEM: There is no evidence of diverticulitis, colitis, mechanical obstruction, or appendicitis. The small bowel as visualized appears normal.Inflammatory changes at the pancreaticoduodenal groove involving the duodenum associated with the presumed acute pancreatitis. PELVIS: No mass, adenopathy or free fluid. OSSEOUS STRUCTURES and ABDOMINAL WALL: There is an age-appropriate appearance of the osseous structures.No significant abdominal wall defect. OTHER: No free fluid or free air. IMPRESSION: 1. There are findings of acute on chronic pancreatitis. 2. The acute findings are peripancreatic inflammatory changes especially at the pancreaticoduodenal groove with secondary involvement of the duodenum. 3. The chronic findings are what is likely an enlarging pseudocyst at the pancreatic head. This appears to be partially obstructive of the main pancreatic duct and the common bile duct. Follow-up is recommended to exclude a neoplastic process which is felt less likely. There is also a relatively large developing pseudocysts about the body and tail measuring 8.7 x 2.0 x 2.8 centimeters which is new. 4. Pericholecystic fluid associated with the gallbladder probably related to adjacent pancreatic pathology rather than primary gallbladder disease Please note that all CT scans at this facility use dose modulation, iterative reconstruction, and/or weight-based dosing when appropriate to reduce radiation dose to as low as reasonably achievable. Dictated by Ed Husain MD @ 11/25/2021 9:49:55 AM (Electronic Signature) US - abdomen: Attestation: I have reviewed the pertinent imaging results. Radiologist's impression: Patient: ASHLYN MILLIGAN Facility:?[facility] Patient ID:?[id number] Site Patient ID:?[id number]. Site :?[id number] Study:?US Abdomen/Pelvis -11/25/2021 9:13:48 AM Ordering Physician:?Rhona Murphy Final Report: INDICATION: RUQ PAIN, HX CHRONIC PANCREATITIS COMPARISON: CT 02/11/2021 TECHNIQUE: Real time rubio scale imaging and color Doppler analysis was performed of the right upper quadrant. FINDINGS: The pancreas is incompletely evaluated due to overlying bowel gas. Prominence of the pancreatic duct and common bile duct are probably similar. The previously noted hypoechoic mass like area within the pancreatic head/uncinate process was better visualized on prior CT. No ascites. Debris within the gallbladder suspected. Gallbladder wall measures 2 millimeters. Common bile duct measures up to 1 cm. No intrahepatic mass. Right kidney normal without hydronephrosis measuring 12.0 cm. Normal aorta and IVC. IMPRESSION: Limited evaluation of the pancreas due to overlying bowel gas. CT is recommended to follow-up the abnormal pancreatic findings on the prior CT study from 2020. Prominence of the common bile duct, likely chronic. Debris in the gallbladder lumen, mild, consistent with sludge or cholesterol stones. Dictated by Thad Corbin MD @ 11/25/2021 9:24:25 AM (Electronic Signature) Critical Care Time Critical Care Time Critical Care Time: No Discharge Plan Discharge Clinical Impression: Acute on chronic pancreatitis, Pseudocyst of pancreas Patient Disposition: Home, Self-Care Condition: Stable Instructions: Pancreatitis (ED) Additional Instructions: Use Tylenol per bottle directions and tramadol from your kids club attendant per prescription instructions. Clear liquids, bland diet. If you develop fever, severe abdominal pain, started vomiting, do need re-evaluation. You do need to try to contact [facility] office to see if your appointment could possibly be moved up. Please take the ultrasound and the CT abdomen reports given to you to your follow-up with her kids club attendant. Prescriptions: No Action metformin 500 mg tablet 1,000 mg PO BIDWM atorvastatin 20 mg tablet 20 mg PO HS cyanocobalamin (vitamin B-12) 1,000 mcg tablet 1,000 mcg PO DAILY omeprazole 40 mg capsule,delayed release(DR/EC) 40 mg PO DAILY citalopram 20 mg tablet 20 mg PO DAILY lisinopril 10 mg tablet 10 mg PO DAILY propranolol 80 mg capsule,extended release 24 hr 80 mg PO DAILY Creon 24,000-76,000 -120,000 unit capsule,delayed release(DR/EC) 2 cap PO TIDWM Rx Instructions: PLUS 1 CAPSULE WITH SNACKS aspirin [Adult Aspirin Regimen] 81 mg tablet,delayed release (DR/EC) 81 mg PO DAILY multivitamin Tablet 1 tab PO DAILY Follow Up/Referrals: Provider,Not a Local [Primary Care Provider] - Stand Alone Forms: MessageParty Info Instructions
--- NOTE | 2021-11-25 08:30 | CRLHL7_ITS ---
For Patients: As a result of the Century Cures Act, medical imaging exams and procedure reports are released immediately into your electronic medical record. You may view this report before your referring provider. If you have questions, please contact your health care provider. INDICATION: RUQ PAIN, HX CHRONIC PANCREATITIS COMPARISON: CT 02/11/2021 TECHNIQUE: Real time rubio scale imaging and color Doppler analysis was performed of the right upper quadrant. FINDINGS: The pancreas is incompletely evaluated due to overlying bowel gas. Prominence of the pancreatic duct and common bile duct are probably similar. The previously noted hypoechoic mass like area within the pancreatic head/uncinate process was better visualized on prior CT. No ascites. Debris within the gallbladder suspected. Gallbladder wall measures 2 millimeters. Common bile duct measures up to 1 cm. No intrahepatic mass. Right kidney normal without hydronephrosis measuring 12.0 cm. Normal aorta and IVC. IMPRESSION: Limited evaluation of the pancreas due to overlying bowel gas. CT is recommended to follow-up the abnormal pancreatic findings on the prior CT study from 2020. Prominence of the common bile duct, likely chronic. Debris in the gallbladder lumen, mild, consistent with sludge or cholesterol stones. Dictated by Thad Corbin MD @ 11/25/2021 9:24:25 AM (Electronically Signed)
--- NOTE | 2021-11-25 08:30 | CRLHL7_ITS ---
For Patients: As a result of the Century Cures Act, medical imaging exams and procedure reports are released immediately into your electronic medical record. You may view this report before your referring provider. If you have questions, please contact your health care provider. INDICATION: Pancreatitis with back pain. COMPARISON: 02/11/2021 TECHNIQUE: CT examination of the abdomen and pelvis was performed following the uneventful intravenous administration of 81 cc of Isovue 3 7. Thin section axial images were obtained from the lung bases through the pubic symphysis. Oral contrast was not administered. Please note that all CT scans at this facility use dose modulation, iterative reconstruction, and/or weight-based dosing when appropriate to reduce radiation dose to as low as reasonably achievable. FINDINGS: LUNG BASES: The lung bases as visualized appear normal.The heart size is normal at the lung bases. LIVER/BILIARY SYSTEM:Hepatic steatosis. Borderline intrahepatic and extrahepatic biliary ductal dilatation. This is probably due to low grade obstruction due to the pancreatic head finding described below. This is similar to the prior study. There is fluid around the gallbladder which is probably secondary to the adjacent pancreatic process. No visible gallstones.The gallbladder is similar to the prior study. ADRENALS: Normal KIDNEYS, URETERS and BLADDER:The kidneys appear normal. No visible mass, calculus or hydronephrosis. The ureters and bladder as visualized appear normal. SPLEEN:Normal appearance. The splenic vein is patent PANCREAS: The pancreas is abnormal. There are moderate inflammatory changes consistent with acute pancreatitis. There also findings of chronic pancreatitis. Specifically, there is a multiloculated cystic mass in the inferior pancreatic head which is more prominent than was February 11, 2021. This measures approximately 3.3 x 3.4 centimeters from axial image 59. This likely represents a series of pseudocysts. There is also mild pancreatic biliary ductal dilatation which is similar. Fluid wraps around the pancreatic body and tail. This has a wall and is probably a pseudocyst. Best seen on coronal image 40 where it measures about 8.7 x 2.0 by 2.8 centimeters. RETROPERITONEUM and MESENTERY: There is no mass, adenopathy or aortic aneurysm. Atherosclerotic vascular calcifications GASTROINTESTINAL SYSTEM: There is no evidence of diverticulitis, colitis, mechanical obstruction, or appendicitis. The small bowel as visualized appears normal.Inflammatory changes at the pancreaticoduodenal groove involving the duodenum associated with the presumed acute pancreatitis. PELVIS: No mass, adenopathy or free fluid. OSSEOUS STRUCTURES and ABDOMINAL WALL: There is an age-appropriate appearance of the osseous structures.No significant abdominal wall defect. OTHER: No free fluid or free air. IMPRESSION: 1. There are findings of acute on chronic pancreatitis. 2. The acute findings are peripancreatic inflammatory changes especially at the pancreaticoduodenal groove with secondary involvement of the duodenum. 3. The chronic findings are what is likely an enlarging pseudocyst at the pancreatic head. This appears to be partially obstructive of the main pancreatic duct and the common bile duct. Follow-up is recommended to exclude a neoplastic process which is felt less likely. There is also a relatively large developing pseudocysts about the body and tail measuring 8.7 x 2.0 x 2.8 centimeters which is new. 4. Pericholecystic fluid associated with the gallbladder probably related to adjacent pancreatic pathology rather than primary gallbladder disease Please note that all CT scans at this facility use dose modulation, iterative reconstruction, and/or weight-based dosing when appropriate to reduce radiation dose to as low as reasonably achievable. Dictated by Ed Husain MD @ 11/25/2021 9:49:55 AM (Electronically Signed)
[2021-11-25 08:46] LABS: Lactate* 1.6 mmol/L (0.5-1.9)
[2021-11-25 08:49] LABS: Basophils Percent Auto 0.6 % (0.0-3.0); Eosinophils Percent Auto 2.1 % (0.0-7.0); Hematocrit 39.8 % (37.0-53.0); Hemoglobin* 13.1 gm/dL (13.5-17.5); Immature Granulocytes Abs Auto 0.06 K/uL (0.00-0.30); Lymphocytes Percent Auto 18.9 % (20-44); Mean Corpuscular HGB Conc 33 gm/dL (32-36); Mean Corpuscular Hemoglobin 32 pg (26-34); Mean Corpuscular Volume 98 fL (80-100); Platelet Count* 487 K/uL (140-440); RDW Coefficient of Variation % 14.5 % (11.5-15.5); Red Blood Count 4.07 m/uL (4.30-5.90); White Blood Count* 13.58 K/uL (4.50-11.00)
[2021-11-25 08:50] LABS: Appearance Urine Clear (Clear); Bilirubin Urine 1+ (Negative); Blood Urine 2+ (Negative); Color Urine Yellow (Yellow); Glucose Urine Negative (Negative); Ketones Urine Trace (Negative); Leukocyte Esterase Urine Negative (Negative); Nitrite Urine Negative (Negative); Protein Urine 1+ (Negative); Specific Gravity Urine 1.025 (1.000-1.030); Urobilinogen Urine 0.2 (0.2-1.0)
[2021-11-25 08:58] LABS: Slide Review Reflex No
[2021-11-25 09:05] LABS: Albumin* 4.1 g/dL (3.3-5.0); Chloride* 109 mmol/L (96-114); Sodium* 140 mmol/L (135-149)
[2021-11-25 09:06] LABS: Potassium* 4.3 mmol/L (3.6-5.1)
[2021-11-25 09:08] LABS: Carbon Dioxide* 22 mmol/L (20-32); Creatinine* 0.6 mg/dL (0.5-1.5); Est. Creatinine Clearance* 145.67; Estimated Glomerular Filt Rate 119 ml/min
[2021-11-25 09:09] LABS: Alanine Aminotransferase* 14 U/L (4-50); Alkaline Phosphatase* 121 U/L (40-150); Aspartate Amino Transferase* 19 U/L (12-35); Bilirubin Total* 0.3 mg/dL (0.1-1.5); Blood Urea Nitrogen* 17 mg/dL (5-24); Calcium* 9.2 mg/dL (8.4-10.6); Glucose* 147 mg/dL (60-115); Lipase* 788 U/L (23-300)
[2021-11-25 09:16] LABS: Ethanol* < 0.01 % (0.01-0.03)
[2021-11-25 09:22] LABS: WBC Urine 0-2 (0-5)
[2021-11-25] MEDS: 0.9 % SODIUM CHLORIDE 1000 ml 1,000 ML 500 ML IV (11:30)
--- NOTE | 2021-11-25 11:36 | ED.NURSE ---
attempting to drink water.
[2021-11-25 12:11] LABS: SARS PCR* Negative SARS-CoV-2 (Negative)
== END 2021-11-25 14:40 | disposition home or self-care (01) ==
PROVIDERS: Emergency Provider Family Medicine
DX: K86.1 Other chronic pancreatitis (principal); K86.3 Pseudocyst of pancreas
CPT/HCPCS: 36415; 74177; 76705; 80053; 81001; 82077; 83605; 83690; 85025; 86140; 87635; 96360; 99284; 99285; J7030; Q9967

== ENCOUNTER 2022-10-13 14:43 | Emergency (ER) | payer BC, SELFPAY ==
[2022-10-13] VITALS (19 sets, daily range): BP systolic 88–130; BP diastolic 47–75; PULSE 92–104; RESP 18; TEMP 35.9; O2SAT 90–99; BMI 24.2
--- NOTE | 2022-10-13 15:13 | ED.ABDPAIN ---
HPI - Abdominal Pain General Time Seen by Provider: 15:13 Date Seen: 10/13/22 Chief Complaint: Abdominal Pain Stated Complaint: Hernia, impaired blood flow to bowels Time Seen by Provider: 10/13/22 14:58 Source: patient and RN notes reviewed Mode of arrival: ambulatory Limitations: no limitations History of Present Illness HPI narrative: Boris is a 47-year-old male referred from [facility] for concern possible strangulated hernia. He noted this morning when he got up to go to the bathroom there was bulging in his right groin. He had a bowel movement yesterday. Does have some lower abdominal pain and right groin pain. If he is just lying still in the bed, has minimal pain but with any movement has significant pain. He denies any fevers chills. No nausea or vomiting. No urinary symptoms. He was told to come get an ultrasound. He does have a history of pancreatitis. He does report he had CT imaging recently, maybe even a few days ago at [facility]. He last ate about 10:00 a.m. this morning with some potato chips. He is advised not eat or drink anything until further notice at this point. MD elicited complaint: abdominal pain and other (Right inguinal hernia into scrotum) Related Data Home Medications Medication Instructions Recorded Confirmed atorvastatin 20 mg tablet 20 mg PO HS 09/22/21 09/23/21 citalopram 20 mg tablet 20 mg PO DAILY 09/22/21 09/23/21 cyanocobalamin (vitamin B-12) 1,000 mcg PO DAILY 09/22/21 09/23/21 1,000 mcg tablet tmkuqi-czywlqnq-qukblil 2 cap PO TIDWM 09/22/21 09/23/21 24,000-76,000-120,000 unit capsule,delayed rel (Creon) lisinopril 10 mg tablet 10 mg PO DAILY 09/22/21 09/23/21 metformin 500 mg tablet 1,000 mg PO BIDWM 09/22/21 09/23/21 omeprazole 40 mg capsule,delayed 40 mg PO DAILY 09/22/21 09/23/21 release propranolol 80 mg capsule,24 80 mg PO DAILY 09/22/21 09/23/21 hr,extended release aspirin 81 mg tablet,delayed 81 mg PO DAILY 09/23/21 09/23/21 release (Adult Aspirin Regimen) multivitamin 1 tab PO DAILY 09/23/21 09/23/21 Allergies Allergy/AdvReac Type Severity Reaction Status Date / Time No Known Drug Allergies Allergy Verified 10/13/22 14:53 Review of Systems Status of ROS Reports: 6 or more systems reviewed and unremarkable except as noted in History and below [facility] Medical History Pancreatic insufficiency ?K86.89 - Other specified diseases of pancreas (ICD-10) 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 coronary artery without angina pectoris (ICD-10) Surgical History No significant past surgical history Social History Highest level of school completed/degree received: Associate degree: occupational, technical, vocational program Smoking Status: Current every day smoker What tobacco products do you use: cigarettes Smoking packs per day: 1 Smoking cigarettes per day: 20.0 Years smoked: 35 Smoking pack-years: 35.00 Second hand tobacco smoke exposure: No How often do you have a drink containing alcohol: 2-4 times a month Alcohol type: beer How many standard drinks containing alcohol do you have on a typical day: 3 or 4 How often do you have six or more drinks on one occasion: Never AUDIT-C Alcohol total score: 3 Non-prescribed substance use: denies use Caffeine: No service: No Exam Const: Vital Signs, click to edit/add: Vital Signs - 24 hr 10/13/22 14:54 10/13/22 15:54 10/13/22 16:00 Temperature 96.6 F L Pulse Rate [Pulse Oximeter] 104 H Respiratory Rate 18 Blood Pressure [Ri ght Upper Arm] 105/62 95/61 89/64 L Pulse Oximetry 96 97 Oxygen Delivery Me thod Room Air Room Air 10/13/22 16:30 10/13/22 17:00 10/13/22 17:30 Temperature Pulse Rate [Pulse Oximeter] Respiratory Rate Blood Pressure [Ri ght Upper Arm] 105/58 L 101/49 L 96/47 L Pulse Oximetry 94 95 95 Oxygen Delivery Me thod Room Air Room Air Room Air 10/13/22 18:00 10/13/22 18:16 10/13/22 18:17 Temperature Pulse Rate [Pulse Oximeter] Respiratory Rate Blood Pressure [Ri ght Upper Arm] 98/51 L 88/56 L 107/62 Pulse Oximetry 96 97 97 Oxygen Delivery Me thod Room Air Room Air Room Air 10/13/22 18:30 Temperature Pulse Rate [Pulse Oximeter] Respiratory Rate Blood Pressure [Ri ght Upper Arm] 109/64 Pulse Oximetry 95 Oxygen Delivery Me thod Room Air Documenting provider has reviewed patient's vital signs: yes Common normals: no apparent distress, average body habitus, oriented x3, no limitations, healthy appearing, alert and well nourished General appearance: cooperative, comfortable, well kempt and well developed Other: Appears comfortable while just lying in the bed. HENMT: Common normals: normocephalic, head/scalp atraumatic, hearing grossly normal bilaterally and external nose normal Head and scalp: normocephalic and atraumatic Face and sinus: normal facial exam Nose: external nose normal Eye: Common normals: PERRL, EOMs intact bilaterally, conjunctivae normal and no scleral icterus Conjunctiva: conjunctiva(e) normal Pupil: PERRL Neck & C-Spine: Common normals: full ROM, no lymphadenopathy and supple Resp: Common normals: normal respiratory effort, no retractions, no use of accessory muscles and clear to auscultation bilaterally Effort & inspection: able to speak in complete sentences Auscultation: clear to auscultation bilaterally Cardio: Common normals: regular rate, regular rhythm, S1 normal heart sound, S2 normal heart sound, no gallops, no clicks and no murmurs Rate: regular rate Rhythm: regular rhythm Heart sounds: S1 normal and S2 normal GI: Other: Abdomen appears normal, does have right mid to lower quadrant tenderness which leads into definite inguinal fluctuant bulging that feels like possible bowel, extends down into the scrotal sac. Underlying testicle on the right side does not seem tender, no enlargement or mass noted. Neuro: Common normals: oriented x3 Sensorium/orientation: alert Psych: Appearance: well kempt Course Course Hospital Course: Patient is going to get imaging with CT to better differentiate bowel and the hernia. I would favor CT over ultrasound in this situation. Will establish an IV, he declines any need for pain management at this point as he states he is comfortable lying still. Will get appropriate basic lab work as well. Reevaluation(s) Time of Reevaluation #1: 17:52 Reevaluation #1: Reviewed with patient that there is fat-containing hernia in the scrotum, no bowel/no strangulated hernia. The hernia is not surgically emergent. He does have new abscess in the right abdomen, possible duodenal perforation. Our surgeon was aware of this patient and has contacted me already, requests transfer to higher level of care, will initiate antibiotics. Consultations Consultation #1: We have heard from the [facility] system that there are is no availability for med surg, [place] on divert. Will contact [facility]. 18:24 Contacted [facility], they will page at [place], less than 4 hour wait for med surg bed currently. At 18:[address] Joseph general surgery from [place], she did not feel patient was appropriate to accept there, thought he should be where there is hepatobiliary surgery (like [facility] or [place]). Ashley was calling back right about this time and had the hospitalist that was calling to consider transfer; spoke with Dr. Matias at 1846pm. They connected in surgeon Dr. Echeverria. He recommended transfer to [facility] ED for further evaluation and possible consideration of IR drain placement. Dr. Myers from ED was given report at 1901pm and accepts patient. Time: 18:19 Vital Signs Vital signs: Initial Vital Signs Temperature 96.6 F L 10/13/22 14:54 Temperature Source Temporal Artery Scan 10/13/22 14:54 Pulse Rate 104 H 10/13/22 14:54 Respiratory Rate 18 10/13/22 14:54 Blood Pressure 105/62 10/13/22 14:54 Blood Pressure Mean 76 10/13/22 14:54 Blood Pressure Position Sitting 10/13/22 14:54 Pulse Oximetry 96 10/13/22 14:54 Oxygen Delivery Method Room Air 10/13/22 14:54 Vital Signs Temperature 96.6 F L 10/13/22 14:54 Pulse Rate 104 H 10/13/22 14:54 Respiratory Rate 18 10/13/22 14:54 Blood Pressure 105/62 10/13/22 14:54 Pulse Oximetry 96 10/13/22 14:54 Oxygen Delivery Method Room Air 10/13/22 14:54 Temperature 96.6 F L 10/13/22 14:54 Pulse Rate 93 10/13/22 20:02 Respiratory Rate 18 10/13/22 14:54 Blood Pressure 107/51 L 10/13/22 20:02 Pulse Oximetry 90 10/13/22 20:02 Oxygen Delivery Method Room Air 10/13/22 18:30 MDM - Abdominal Pain Lab Data Attestation: I reviewed the patient's lab results. Labs: Lab Results 10/13/22 10/13/22 Range/Units 15:45 17:28 WBC 11.71 H (4.50-11.00) K/uL RBC 3.99 L (4.30-5.90) m/uL Hgb 10.0 L (13.5-17.5) gm/dL Hct 31.6 L (37.0-53.0) % MCV 79 L (80-100) fL MCH 25 L (26-34) pg MCHC 32 (32-36) gm/dL RDW Coeff of Marquise 21.1 H (11.5-15.5) % Plt Count 362 (140-440) K/uL Neut % (Auto) 84.7 H (42.0-72.0) % Lymph % (Auto) 6.1 L (20-44) % [facility] % (Auto) 7.1 (0.0-11.0) % Eos % (Auto) 0.6 (0.0-7.0) % Baso % (Auto) 0.2 (0.0-3.0) % Neut # (Auto) 9.90 H (1.7-7.0) K/uL Lymph # (Auto) 0.70 L (0.90-2.90) K/uL [facility] # (Auto) 0.80 (0.00-0.90) K/UL Eos # (Auto) 0.10 (0.00-0.50) K/uL Baso # (Auto) 0.00 (0.00-0.30) K/uL Abs Immat Gran (auto) 0.20 (0.00-0.30) K/uL Imm/Tot Granulo (auto) 1.3 % Sodium 135 (135-149) mmol/L Potassium 3.2 L (3.6-5.1) mmol/L Chloride 106 (96-114) mmol/L Carbon Dioxide 16 L (20-32) mmol/L BUN 40 H (5-24) mg/dL Creatinine 0.8 (0.5-1.5) mg/dL Estimated Creat Clear 111.70 Estimated GFR 108 ml/min Glucose 153 H (60-115) mg/dL Lactate 1.2 (0.5-1.9) mmol/L Calcium 8.1 L (8.4-10.6) mg/dL C-Reactive Protein 42.5 H (0.5-1.0) mg/dL Amylase 57 (18-89) U/L Lipase 154 (23-300) U/L Ethyl Alcohol < 0.01 L (0.01-0.03) % Lab Acknowledgement Test Added Test Added Imaging Data CT scan - abdomen: Attestation: I have reviewed the pertinent imaging results. Radiologist's impression: Patient: BORIS MILLIGAN Facility:?[facility] Patient ID:?[id number] Site Patient ID:?[id number]. Site :?[id number] Study:?CT Abdomen/Pelvis W/ 80CC-10/13/2022 4:26:15 PM Ordering Physician:Barry Murphy Final Report: INDICATION: Right inguinal hernia. TECHNIQUE: CT abdomen and pelvis acquired with 80 mL Isovue 370 contrast. COMPARISON: CT abdomen/pelvis dated 11/25/2021. FINDINGS: Lower chest: Subsegmental atelectasis in the right lower lobe. Liver: No suspicious focal hepatic lesion. Gallbladder and bile ducts: No calcified gallstones. Trace intrahepatic biliary duct dilation, not significantly changed. Pancreas: Large caliber pancreatic duct stent is in place, with scattered foci of air within the pancreatic duct. Slight hypoenhancement at the pancreatic tail may reflect sequela of prior pancreatitis. No acute pancreatic inflammatory changes are noted. Stable prominence of the pancreatic uncinate process, without a discrete focal mass identified. Spleen: Unremarkable. Adrenal glands: Stable nodular thickening of the bilateral adrenal glands. Kidneys: Kidneys enhance symmetrically, without hydronephrosis. Retroperitoneum: No lymphadenopathy. Bowel and mesentery: Postsurgical changes at the cecum/proximal ascending colon. There is a serpiginous fluid collection abutting the postsurgical changes and extending superiorly to the region of the 2nd/3rd portion the duodenum, with associated foci of air. There is a thickened wall and adjacent inflammation, consistent with abscess. Appearance is most suggestive of a duodenal perforation as the primary etiology, although dehiscence from the colon is also possibility. Bladder: Mild pericystic inflammation, favored to be reactive. Reproductive organs: No significant prostatomegaly. Pelvic lymph nodes: No lymphadenopathy. Vessels: Extensive atherosclerotic calcifications. Abdominal wall: Small bilateral fat filled inguinal hernias, with trace amount of fluid within the right inguinal hernia. Bones: Multilevel degenerative changes of the spine. No suspicious/aggressive focal osseous lesion. IMPRESSION: 1. Serpiginous fluid collection with multiple foci of air in the right abdomen consistent with abscess, which extends from the 2nd/3rd portion duodenum to the region of the cecum. This is difficult to accurately measure, but at its thickest component is approximately 9.0 cm in cranial caudal dimension. Favored etiology is that of a duodenal perforation, although dehiscence from the colon is also a possibility. 2. Mild pericystic inflammation, favored to be reactive. Recommend correlation with urinalysis. 3. Large caliber pancreatic duct stent is in place, with scattered foci of air within the pancreatic duct. No significant acute pancreatic inflammatory changes are noted. 4. Small bilateral fat filled inguinal hernias. Trace amount of fluid is noted within the right inguinal hernia. Hernia does not contain bowel. Please note that all CT scans at this facility use dose modulation, iterative reconstruction, and/or weight-based dosing when appropriate to reduce radiation dose to as low as reasonably achievable. Dictated by Emanuel Galdamez MD @ 10/13/2022 5:38:11 PM (Electronic Signature) Discharge Plan Discharge Clinical Impression: Chronic pancreatitis, Abdominal abscess Patient Disposition: Xfer Acute Care Hospital Discharge Location: [facility] Condition: Stable Discharge Comment: transfer to [facility] ED
--- NOTE | 2022-10-13 15:27 | CRLHL7_ITS ---
For Patients: As a result of the Century Cures Act, medical imaging exams and procedure reports are released immediately into your electronic medical record. You may view this report before your referring provider. If you have questions, please contact your health care provider. INDICATION: Right inguinal hernia. TECHNIQUE: CT abdomen and pelvis acquired with 80 mL Isovue 370 contrast. COMPARISON: CT abdomen/pelvis dated 11/25/2021. FINDINGS: Lower chest: Subsegmental atelectasis in the right lower lobe. Liver: No suspicious focal hepatic lesion. Gallbladder and bile ducts: No calcified gallstones. Trace intrahepatic biliary duct dilation, not significantly changed. Pancreas: Large caliber pancreatic duct stent is in place, with scattered foci of air within the pancreatic duct. Slight hypoenhancement at the pancreatic tail may reflect sequela of prior pancreatitis. No acute pancreatic inflammatory changes are noted. Stable prominence of the pancreatic uncinate process, without a discrete focal mass identified. Spleen: Unremarkable. Adrenal glands: Stable nodular thickening of the bilateral adrenal glands. Kidneys: Kidneys enhance symmetrically, without hydronephrosis. Retroperitoneum: No lymphadenopathy. Bowel and mesentery: Postsurgical changes at the cecum/proximal ascending colon. There is a serpiginous fluid collection abutting the postsurgical changes and extending superiorly to the region of the 2nd/3rd portion the duodenum, with associated foci of air. There is a thickened wall and adjacent inflammation, consistent with abscess. Appearance is most suggestive of a duodenal perforation as the primary etiology, although dehiscence from the colon is also possibility. Bladder: Mild pericystic inflammation, favored to be reactive. Reproductive organs: No significant prostatomegaly. Pelvic lymph nodes: No lymphadenopathy. Vessels: Extensive atherosclerotic calcifications. Abdominal wall: Small bilateral fat filled inguinal hernias, with trace amount of fluid within the right inguinal hernia. Bones: Multilevel degenerative changes of the spine. No suspicious/aggressive focal osseous lesion. IMPRESSION: 1. Serpiginous fluid collection with multiple foci of air in the right abdomen consistent with abscess, which extends from the 2nd/3rd portion duodenum to the region of the cecum. This is difficult to accurately measure, but at its thickest component is approximately 9.0 cm in cranial caudal dimension. Favored etiology is that of a duodenal perforation, although dehiscence from the colon is also a possibility. 2. Mild pericystic inflammation, favored to be reactive. Recommend correlation with urinalysis. 3. Large caliber pancreatic duct stent is in place, with scattered foci of air within the pancreatic duct. No significant acute pancreatic inflammatory changes are noted. 4. Small bilateral fat filled inguinal hernias. Trace amount of fluid is noted within the right inguinal hernia. Hernia does not contain bowel. Please note that all CT scans at this facility use dose modulation, iterative reconstruction, and/or weight-based dosing when appropriate to reduce radiation dose to as low as reasonably achievable. Dictated by Emanuel Galdamez MD @ 10/13/2022 5:38:11 PM (Electronically Signed)
[2022-10-13 15:54] LABS: Lactate* 1.2 mmol/L (0.5-1.9)
[2022-10-13 15:59] LABS: Basophils Percent Auto 0.2 % (0.0-3.0); Eosinophils Percent Auto 0.6 % (0.0-7.0); Hematocrit 31.6 % (37.0-53.0); Immature Granulocytes Pct Auto 1.3 %; Lymphocytes Percent Auto 6.1 % (20-44); Mean Corpuscular HGB Conc 32 gm/dL (32-36); Mean Corpuscular Hemoglobin 25 pg (26-34); Mean Corpuscular Volume 79 fL (80-100); Monocytes Percent Auto 7.1 % (0.0-11.0); Neutrophils Percent Auto 84.7 % (42.0-72.0); Platelet Count* 362 K/uL (140-440); RDW Coefficient of Variation % 21.1 % (11.5-15.5); Red Blood Count 3.99 m/uL (4.30-5.90); White Blood Count* 11.71 K/uL (4.50-11.00)
[2022-10-13 16:00] LABS: Slide Review Reflex No
[2022-10-13 16:09] LABS: Chloride* 106 mmol/L (96-114)
[2022-10-13 16:10] LABS: Potassium* 3.2 mmol/L (3.6-5.1); Sodium* 135 mmol/L (135-149)
[2022-10-13 16:12] LABS: Creatinine* 0.8 mg/dL (0.5-1.5); Estimated Glomerular Filt Rate 108 ml/min
[2022-10-13 16:13] LABS: Blood Urea Nitrogen* 40 mg/dL (5-24); Carbon Dioxide* 16 mmol/L (20-32); Glucose* 153 mg/dL (60-115)
[2022-10-13 16:14] LABS: Calcium* 8.1 mg/dL (8.4-10.6)
[2022-10-13] MEDS: 0.9 % SODIUM CHLORIDE 1000 ml 1,000 ML 500 ML IV (16:37)
[2022-10-13 16:41] LABS: Amylase* 57 U/L (18-89)
[2022-10-13 16:42] LABS: Lipase* 154 U/L (23-300)
[2022-10-13 17:36] LABS: C Reactive Protein* 42.5 mg/dL (0.5-1.0)
[2022-10-13 17:45] LABS: Ethanol* < 0.01 % (0.01-0.03)
[2022-10-13] MEDS: 0.9 % SODIUM CH + KCL 20 mEq/L 1,000 ML 100 ML IV (18:41)
--- NOTE | 2022-10-13 20:22 | ED.NURSE ---
report given to EMS, Patient transfering to [facility] ED.
== END 2022-10-13 20:28 | disposition short-term general hospital (02) ==
PROVIDERS: Emergency Provider Family Medicine; PCP Family Medicine
DX: K86.1 Other chronic pancreatitis (principal); L02.211 Cutaneous abscess of abdominal wall
CPT/HCPCS: 36415; 74177; 80048; 82077; 82150; 83605; 83690; 85025; 86140; 96360; 96361; 99285; J7030; Q9967

== ENCOUNTER 2022-10-13 20:17 | Outpatient (CLI) | payer BC, SELFPAY | END 2022-10-13 20:18 | disposition home or self-care (01) | LOC: AMB 10-17 14:09 | PROVIDERS: PCP Family Medicine; Visit Provider Internal Medicine | DX: K40.90 Unilateral inguinal hernia, without obstruction or gangrene, not specified as recurrent (principal) | CPT/HCPCS: A0425; A0427; A0428 ==

== ENCOUNTER 2023-03-12 09:27 | Emergency (ER) | payer BC, SELFPAY ==
[2023-03-12] VITALS (9 sets, daily range): BP systolic 128–129; BP diastolic 83–85; PULSE 79–84; RESP 18; TEMP 36.5; O2SAT 94–100; BMI 25.1
--- NOTE | 2023-03-12 10:24 | CRLHL7_ITS ---
For Patients: As a result of the Century Cures Act, medical imaging exams and procedure reports are released immediately into your electronic medical record. You may view this report before your referring provider. If you have questions, please contact your health care provider. Indication: Pain following trauma. Technique: CT Head: Performed without IV contrast CT Cervical Spine: Performed without IV contrast. Comparison: None available. Findings: Head: Linear nondisplaced fracture through the right petrous temporal bone, with its cephalad margin near the junction of the right transverse and sigmoid dural venous sinuses. This is associated with blood/fluid in the middle ear cleft and in right mastoid air cells. The left temporal bone is well aerated, and no additional fractures are identified. There is a 15 mm focus of hyperattenuation along the inferior aspect of the left middle cranial fossa. No associated mass effect at this time. Differential possibilities include an acute parenchymal hemorrhage versus a small hyperattenuating mass. MRI could be considered for clarification. 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 Background moderate cerebral atrophy. Cervical Spine: There is mild reversal of the normal cervical lordosis, which can be positional or seen with muscle spasm. No traumatic subluxation identified. No evidence for fracture. Scattered spondylosis, including advanced disc degeneration at C5-6 where there is moderate foraminal narrowing. The paraspinal soft tissues are grossly negative. I discussed the findings of both exams with Dr. Parr on 03/12/2023 at 1130 hours. Impression: CT Head: 1. There is a 15 mm hyperattenuating focus along the floor of the left middle cranial fossa which may represent an acute parenchymal hemorrhage. 2. There is a linear fracture through the right petrous temporal bone, with blood/fluid in the right mastoid and middle ear cleft. 3. 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 CT Cervical Spine: 1. No fracture or traumatic subluxation identified. 2. Spondylosis. Please note that all CT scans at this facility use dose modulation, iterative reconstruction, and/or weight-based dosing when appropriate to reduce radiation dose to as low as reasonably achievable. Dictated by Koby Galarza MD @ 03/12/2023 11:45:24 AM (Electronically Signed)
--- OUTSIDE RECORDS SUMMARY | 2023-03-12 10:46 | XMS_ITS | Continuity of Care Document ---
Author Name Unknown Organization [facility] Address [address] [address] [place] [address] Phone Care Team Providers Care Business Account Manager Name Role Phone Darrian Carreon MD Unavailable Unavailable Allergies, Adverse Reactions, Alerts Substance Reaction Status Criticality No Known Allergies Active No Inform ation Medications Medication Instructions Dosage Effective Dates (start - stop) Status Comments Creon 24,000-76,000-120, 000 unit capsule,delayed release take orally 2 caps 3 times every day with meals and 1 cap with each snack swallowing whole. Do not crush, chew and/or divide. max 10/d - Active omeprazole 40 mg capsule,delayed release take 1 capsule by ORAL route every day 40 MG - Active tramadol 50 mg tablet TAKE 1 TO 2 TABLETS BY MOUTH EVERY 8 HOURS NEEDED FOR PAIN (TAKE 2 TABLETS FOR PAIN > 5/10 , 1 TABLET FOR PAIN < 5/10) - Active metformin 500 mg tablet take 2 tablet by oral route 2 times every day with morning and evening meals 1000 MG - Active atorvastatin 20 mg tablet take 1 tablet by oral route every day 20 MG - Active Multivitamin (unknown strength) Not Available - Active lisinopril 10 mg tablet take 1 tablet by oral route every day 10 MG - Active propranolol 80 mg tablet take 1 tablet by oral route every day 80 MG - Active vitamin B12 1,000 mcg-folic acid 400 mcg sublingual lozenge - Active citalopram 20 mg tablet take 1 tablet by oral route every day 20 MG - Active omeprazole 20 mg capsule,delayed release take 1 capsule by oral route every day 30 minutes to 1 hour before a meal 20 MG - No Longer Active Procedures Procedure Date Ercp; W/endo Retro Remov Stone ERCP w/rem stent & sphinc Established Level 4 Ercp; W/endo Retro Remov Stone ERCP w/stent & sphinc ERCP w/stent & sphinc Ercp; W/endo Retro Remov Stone ERCP w/rem stent & sphinc Established Level 3 Ugi Endo; W/us Guid Asp/bx Ercp; W/endo Retro Remov Stone ERCP w/stent & sphinc Established Level 4 Colonoscopy Flex; W/remov Les- Colonoscopy Flex; W/bx 1/mx Level Iv-surg Path Gross/micro Established Level 4 Established Level 3 Established Level 4 Ugi Endo; W/us Guid Asp/bx Established Level 3 Established Level 5 Init Hosp-da E&m Mod Severity 1 Offic/outpt E&m Estab Mod-hi 2 21 Ugi Endo; W/bx 1/mx Level Iv-surg Path Gross/micro Established Level 3 Init Hosp-da E&m Mod Severity 1 Init Inpt Cons New/est Mod-hi 0 Init Inpt Cons New/est Mod-hi 9 Ugi Endo; W/us Guid Asp/bx Subsqt Hosp-da E&m Stable 15 M 19 Advance Directives Directive Yes / No Effective Date File Name No Information Encounters Encounter Description Practice Location Reason(s) For Visit Diagnoses Date Provider Providers Copied on Encounter [facility], [address] [address], [place], [address], [place] tel:[phone] [facility] No Information 3 Velma Colmenares. [address] [facility] [address], [place], [address] , [place]. tel: [phone] [facility], [address] [address], [place], [address], [place] tel:[phone] [facility] No Information 3 Velma Colmenares. [address] [facility] [address], [place], [address] , [place]. tel: [phone] [facility], [address] [address], [place], [address], [place] tel:[phone] [facility] Pancreatic duct stricture 3 Velma Colmenares. [address] [facility] [address], [address], [place], [address] , [place]. tel: [phone] [facility], [address] [address], [place], [address], [place] tel:[phone] [facility] No Information 3 Velma Colmenares. [address] [facility] [address], [address], [place], [address] , [place]. tel: [phone] Referring Provider: [place], [address] [place], [address]. tel:[phone] Established Level 4 [facility], [address] [address], [place], [address], [place] tel:[phone] [facility] GI Symptoms or Concerns (chief complaint) Alcohol-induce d chronic pancreatitis Apr-0 3 Velma Colmenares. [address] [facility] [address], [address], [place], [address] , [place]. tel: [phone] Referring Provider: [place], [address] [place], [address]. tel:[phone] [facility], [address] [address], [place], [address], [place] tel:[phone] [facility] No Information 3 Berhane armendariz. [address] [facility] [address], [address], [place], [address] , [place]. tel: [phone] [facility], [address] [address], [place], [address], [place] tel:[phone] [facility] Alcohol-induce d chronic pancreatitis 3 Velma Colmenares. [address] [facility] [address], [address], [place], [address] , [place]. tel: [phone] [facility], [address] [address], [place], [address], [place] tel:[phone] [facility] No Information 3 Velma Colmenares. [address] [facility], [address], [place], [address] , [place]. tel: [phone] Referring Provider: Darrian Carreon MD, [address] [facility] [address], [place], [address]. tel:[phone] [facility], [address] [address], [place], [address], [place] tel:[phone] [facility] No Information 3 Berhane armendariz. [address] [facility] [address], [address], [place], [address] , [place]. tel: [phone] [facility], [address] [address], [place], [address], [place] tel:[phone] [facility] Alcohol-induce d chronic pancreatitis 3 Velma Colmenares. [address], [address], [place], [address] , [place]. tel: [phone] [facility], [address] [address], [place], [address], [place] tel:[phone] [facility] No Information 3 Velma Colmenares. [address] [facility] [address], [address], [place], [address] , [place]. tel: [phone] Referring Provider: Darrian Carreon MD, [address] [facility] [address], [place], [address]. [phone] Established Level 3 [facility], [address] [address], [place], [address], [place] tel:[phone] [facility] GI Symptoms or Concerns (chief complaint) Chronic pancreatitis, unspecified pancreatitis typePancreatic duct stricture 3 Berhane armendariz. [address] [facility] [address], [address], [place], [address] , [place]. tel: [phone] Referring Provider: Referral Self, USE FOR SELF REFERRALS. [facility], [address] [address], [place], [address], [place] tel:[phone] [facility] Dark stools 2 Velma Colmenares. [address] [facility] [address], [address], [place], [address] , [place]. tel: [phone] [facility], [address] [address], [place], [address], [place] tel:[phone] [facility] Pancreatic duct stricture 2 Velma Colmenares. [address] [facility] [address], [address], [place], [address] , [place]. tel: [phone] [facility], [address] [address], [place], [address], [place] tel:[phone] [facility] No Information 2 Velma Colmenares. [address] [facility] [address], [address], [place], [address] , [place]. [phone] Referring Provider: Darrian Carreon MD, [address] [facility] [address], [place], [address]. tel:[phone] Established Level 4 [facility], [address] [address], [place], [address], [place] tel:[phone] [facility] GI Symptoms or Concerns (chief complaint) Chronic pancreatitis, unspecified pancreatitis typeRecurrent acute pancreatitisPa ncreatic duct stricture 2 Berhane armendariz. [address] [facility], [address], [place], [address] , [place]. [phone] Referring Provider: Referral Self, USE FOR SELF REFERRALS. [facility], [address] [address], [place], [address], [place] tel:[phone] [facility] GI Symptoms or Concerns (chief complaint) Colorectal polypsDiarrhea , unspecifiedBen ign neoplasm of cecumBenign neoplasm of ascending colonBenign neoplasm of transverse colonBenign neoplasm of cecum 2 Marie Sanderson. [address] [facility] [address], [address], [place], [address] , [place]. [phone] Referring Provider: Referral Self, USE FOR SELF REFERRALS. [facility], [address] [address], [place], [address], [place] tel:[phone] [facility] No Information 2 Berhane armendariz. [address] [facility], [address], [place], [address] , [place]. tel:[phone] [facility], [address] [address], [place], [address], [place] tel:[phone] [facility] Recurrent acute pancreatitis 2 Berhane armendariz. [address] [facility] [address], [address], [place], [address] , [place]. [phone] Established Level 4 [facility], [address] [address], [place], [address], [place] tel:[phone] [facility] GI Symptoms or Concerns (chief complaint) Diarrhea, unspecified typeChronic pancreatitis, unspecified pancreatitis typeEncounter for screening for malignant neoplasm of colonHyperglyc emia 2 Berhane durham [address] [facility] [address], [address], [place], [address] , [place]. [phone] Referring Provider: Referral Self, USE FOR SELF REFERRALS. [facility], [address] [address], [place], [address], [place] tel:[phone] [facility] No Information 2 Mayte Combs [address] [facility] [address], [address], [place], [address] , [place]. [phone] Established Level 3 [facility], [address] [address], [place], [address], [place] tel:[phone] [facility] GI Symptoms or Concerns (chief complaint) Chronic pancreatitis, unspecified pancreatitis typeAlcohol useRecurrent pancreatitis 2 Berhane durham [address] [facility] [address], [address], [place], [address] , [place]. [phone] Referring Provider: Referral Self, USE FOR SELF REFERRALS. [facility], [address] [address], [place], [address], [place] tel:[phone] [facility] Abnormal liver function test 2 Berhane durham [address] [facility] [address], [address], [place], [address] , [place]. [phone] Established Level 4 [facility], [address] [address], [place], [address], [place] tel:[phone] [facility] GI Symptoms or Concerns (chief complaint) Epigastric painChronic pancreatitis, unspecified pancreatitis typeRecurrent acute pancreatitis 2 Berhane armendariz. [address] [facility], [address], [place], [address] , [place]. [phone] Referring Provider: Referral Self, USE FOR SELF REFERRALS. [facility], [address] [address], [place], [address], [place] tel:[phone] [facility] No Information 2 Rudy Obregon [address] [facility], [address], [place], [address] , [place]. tel:[phone] Referring Provider: Marielle Grant MD, [address] [facility] [address], [place], [address]. [phone] [facility], [address] [address], [place], [address], [place] tel:[phone] [facility] Pancreatic duct dilatedPancrea tic abnormalityDuo denitis 1 Berhane armendariz. [address] [facility], [address], [place], [address] , [place]. [phone] Established Level 3 [facility], [address] [address], [place], [address], [place] tel:[phone] [facility] GI Symptoms or Concerns (chief complaint) Alcohol-induce d acute pancreatitis, unspecified complication statusPancreat ic duct dilated 2 1 Berhane armendariz. [address] [facility], [address], [place], [address] , [place]. [phone] Referring Provider: Noemi Acuna DO, [address] [place] [address], [address]. tel:[phone] Established Level 5 [facility], [address] [address], [place], [address], [place] tel:[phone] [facility] Recurrent acute pancreatitisPa ncreatic duct dilatedPancrea tic cyst 1 Berhane armendariz. [address] [facility], [address], [place], [place], [address] , [place]. [phone] Referring Provider: [place], [address] [place], [address]. tel:[phone] Init Hosp-da E&m Mod Severity [facility], [address] [address], [place], [address], [place] tel:[phone] [facility] No Information 1 Kimberley Samuel. [address] [facility], [address], [place], [place], [address] , [place]. [phone] Referring Provider: Jimmie Ernandez, [address] [facility] [address], [place], [address]. [phone] Offic/outpt E&m Estab Mod-hi 2 [facility], [address] [address], [place], [address], [place] tel:[phone] [facility] GI Symptoms or Concerns (chief complaint) Alcohol-induce d acute pancreatitis, unspecified complication status 1 Berhane armendariz. [address] [facility], [address], [facility] [place], [address] , [place]. [phone] Referring Provider: Referral Self, USE FOR SELF REFERRALS. [facility], [address] [address], [place], [address], [place] tel:[phone] [facility] No Information 1 Scar Vargas. [address] [facility], [address], [place], [place], [address] , [place]. [phone] Referring Provider: Oralia Patel, [address] [facility] [address], [place], [address]. tel:[phone] [facility], [address] [address], [place], [address], [place] tel:[phone] [facility] Abnormal CT scan, gastrointestin al tractDuodeniti sUnspecified abdominal painAbnormal findings on dx imaging of prt digestive tract 1 Lorie Barton . [address] [facility] [address], [address], [place], [address] , [place]. tel:[phone] Referring Provider: Referral Self, USE FOR SELF REFERRALS. Established Level 3 [facility], [address] [address], [place], [address], [place] tel:[phone] [facility] GI Symptoms or Concerns (chief complaint) Alcohol-induce d acute pancreatitis, unspecified complication statusPancreat ic insufficiencyS mokingAlcohol use 1 Berhane armendariz. [address] [facility] [address], [address], [place], [address] , [place]. [phone] Referring Provider: Referral Self, USE FOR SELF REFERRALS. [facility], [address] [address], [place], [address], [place] tel:[phone] [facility] No Information 1 Venkatesh Brady. [address] [facility] [address], [address], [place], [address] , [place]. [phone] Init Hosp-da E&m Mod Severity [facility], [address] [address], [place], [address], [place] tel:[phone] [facility] No Information 1 Balta Goodman. [address] [facility] [address], [address], [facility] [address] , [place]. [phone] Referring Provider: Maxine Dubose, [address] [facility] [address], [place], [address]. tel:[phone] Init Inpt Cons New/est Mod-hi [facility], [address] [address], [place], [address], [place] tel:[phone] [facility] No Information 0 Emory Prado. [address] [facility], [address], [facility], [address] , [place]. tel: [phone] Referring Provider: Ed Valentine MD, [address] [facility] [address] [facility], [place], [address]. tel:[phone] Init Inpt Cons New/est Mod-hi [facility], [address] [address], [place], [address], [place] tel:[phone] [facility] No Information 9 Emory Prado. [address] [facility], [address], [facility], [place], [address] , [place]. tel: [phone] Referring Provider: Jones GAN, [address] [facility], [place], [address]. tel:[phone] [facility], [address] [address], [place], [address], [place] tel:[phone] [facility] Acute pancreatitis without infection or necrosis, unspecified pancreatitis type 9 Rudy Obregon [address] [facility], [address], [place], [address] , [place]. tel: [phone] [facility], [address] [address], [place], [address], [place] tel:[phone] [facility] Acute pancreatitis without infection or necrosis, unspecified pancreatitis type 9 Rudy Obregon [address] [facility], [address], [facility] [place], [address] , [place]. tel: [phone] [facility], [address] [address], [place], [address], [place] tel:[phone] [facility] No Information 9 Rudy Obregon [address] [place] [address] [address], [place], [place], [address] , [place]. tel:[phone] Referring Provider: Marielle Grant MD, [address] [place] [address], [place], [address]. 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 [address] [facility], [facility] [address], [place], [place], [address] , [place]. [phone] Subsqt Hosp-da E&m Stable 15 M [facility], [address] [address], [place], [place], [address], [place] tel:[phone] [facility] No Information Jun-0 9 Chris Romero. [address] [place] [address] [address], [place], [place], [address] , [place]. tel:[phone] Referring Provider: Heather LEWIS, [address] [place] [address], [place], [address]. tel:[phone] Family History Family Member Type Diagnosis Age At Onset Brother Problem (finding) Diabetes mellitus Father Problem (finding) Alive and well Sister Problem (finding) Alive and well Brother Problem (finding) Obesity Mother Problem (finding) Alive and well Immunizations Vaccine Date Status Comments Pneumococcal conjugate vacci ne 20-valent (PCV20), polysaccharide CCM730 conjugate, adjuvant, preservative free administered Note: [facility] bi-direct ional interface ; Source: Other Registry Pneumovax 23 administered Note: [facility] bi-d irectional interface ; Source: Other Registry SARS-COV-2 (COVID-19) vaccin e, mRNA, spike protein, LNP, preservative free, 30 mcg/0.3mL dose administered Note: [facility] bi-direct ional interface ; Source: Other Registry SARS-COV-2 (COVID-19) vaccin e, mRNA, spike protein, LNP, preservative free, 30 mcg/0.3mL dose administered Note: [facility] bi-direct ional interface ; Source: Other Registry tetanus and diphtheria toxoi ds, adsorbed, preservative free, for adult use (2 Lf of tetanus toxoid and 2 Lf of diphtheria toxoid) administered Note: [facility] C bi- directional interface ; Source: Other Registry tetanus toxoid, reduced diphtheria toxoid, and acellular pertussis vaccine, adsorbed administered Note: [facility] b i-directional interface ; Source: Other Registry Payers Payer name Insurance type Covered libertarian ID Authoriza tion(s) No Information Social History Type Description Quantity Date Captured Comments Alcohol Use Details Unknown Caffeine Use Details Unknown Tobacco Use Status Smoking Status No Information Sex Male Chief Complaint And Reason For Visit No Information Reason For Referral Reason For Referral No Information Plan Of Treatment Date Type Action Status Referral Ordered: follow-up visit with de, pancreas clinic in 2 months ordered Referral Ordered: ERCP Appointment date/timeframe: 01/24/2022 ordered Referral Ordered: Colonoscopy Appointment date/timeframe: 12/27/2021 ordered Referral Ordered: follow-up visit with de pancreas clinic in 3 months ordered Referral Ordered: CBC w/diff Appointment date/timeframe: 04/05/2021 ordered Referral Ordered: Hepatic Function Panel Appointment date/timeframe: 04/05/2021 ordered Referral Ordered: Lipase Appointment date/timeframe: 04/05/2021 ordered Referral Ordered: MRCP Biliary/Pancreatic Ducts WITHOUT And WITH Contrast Appointment date/timeframe: 10/28/2020 ordered Referral Ordered: MRI Pancreas WITH Contrast Appointment date/timeframe: 10/17/2018 ordered Referral Ordered: EUS Appointment date/timeframe: 08/22/2018 ordered History Of Present Illness Encounter Date Complaint History Of Prese nt Illness GI Symptoms or Concerns Boris is a pleasant 47-year-old gentleman with a history of chronic pancreatitis related to alcohol abuse in the past. He has had quite a bit of associated pain with this disease but has responded to pancreas duct stenting. Unfortunately does continue to drink occasionally as well as smokes cigarettes up to a pack a day. He is working his primary care doctor to cut back on the smoking. He reports his pain seems to be better. He takes no narcotics at the moment. His weight is stable. Has no nausea or vomiting. GI Symptoms or Concerns Mr. Kaylyn meyers is a 46-year-old male scheduled for followup appointment today on a virtual platform. At the time of video call, consent was obtained.He reports he has been doing remarkably well since his EUS, ERCP and pancreatic stent placement in mid January. He has been eating better and denies episodes of pain exacerbation except rare instances where he has had to take tramadol. However, over the last 1 week to 10 days, he has experienced new onset low back pain and hip pain with radiation to his calves. He thinks this is sciatica, but has not been evaluated. He has an upcoming appointment with his primary on Sunday and he has also set up consult with workers compensation specialist.He reports continued smoking, although he has been working on cutting back. He also has had some increased alcohol consumption lately with new back pain. Currently, he reports using about 3 to 9 beers a month.Please refer to my previous notes for details of his presentation. No recent ER visits. Over GI Symptoms or Concerns Mr. Kaylyn meyers is a 46-year-old male scheduled for a virtual followup appointment today. At the time of video call, consent was obtained.He reports ongoing upper back pain. He is currently using tramadol on and off for this pain with some relief. Recently, he saw his primary, who prescribed Flexeril, but this has not led to any improvement. He feels the pain tends to worsen with eating. No significant exacerbation with movement. Occasionally, he will have bouts where the pain will radiate into his front of the abdomen.Overall, he feels the severity of pain is not as bad as when he was in the hospital.Since last visit about 3 months ago, he has had 2 ER visits to [facility] requiring hospitalization for acute pancreatitis.He reports continued smoking and he has struggled on multiple instances with attempts at quitting.He also reports occasional alcohol use with a few beers at a time.He feels his diarrhea has improved. His stools are more variable with occasional loose stools. He is currently taking Creon 2 with main meals and [address] scan from December 19, 2021, showed persistent peripancreatic inflammatory changes around the head with fullness in the head and appearance suggestive of mass-like abnormality in the uncinate process, which has also previously been evaluated with multiple MRIs and EUS. This appears to be a T1 hyperenhancing lesion on MRI. An EUS done in March by Dr. Grant, she felt this may have been a focal area of fat sparing. FNA was benign. At the time of EUS, no significant stricture was noted. However, on the most recent CT, there appears to be a focal stricture in the head of the pancreas with dilation of the pancreatic duct upstream up to 6 mm. GI Symptoms or Concerns GI Symptoms or Concerns Mr. Kaylyn meyers is a 46-year-old male scheduled for virtual followup appointment. At the time of video call, consent was obtained.Please refer to my previous notes from June 06 for details of his previous presentation and course. Known alcoholic chronic pancreatitis and recurrent acute pancreatitis. He reports that his abdominal symptoms have been more stable now with regards to pain with use of Creon and reducing alcohol. He tells me that in the last 1 month, he may have only had beer 2 times about 6 in total. He is working to cut back further. He continues to smoke.He is tolerating diet better. However, he is concerned about diarrhea. He feels this is a recent issue likely going on over the last 2 weeks. He has had 1 episode of incontinence and he is worried about urgency and has missed days of work due to diarrhea. He is currently having multiple watery bowel movements in the morning. He denies any rectal bleeding. No previous colonoscopy. Weight has been stable.With regards to abdominal pain, he has not had to use tramadol recently.He also reports high glucose levels with monitoring at home. Notes levels can sometimes be about 300. His metformin was increased to 2 g daily about 3 months ago. He does not feel the diarrhea occurred after starting or increasing metformin.Denies any nausea, vomiting, fevers or chills. Denies any recent sick contacts. GI Symptoms or Concerns Mr. Kaylyn meyers is a 46-year-old male scheduled for a telephone followup appointment today. At the time of phone call, consent was obtained.He reports less frequent problems with upper abdominal pain now. He has been taking Creon about 4-5 capsules a day with meals. He eats 2 predominant meals a day. However, he has experienced more upper and lower back pain problems that he feels are muscular and sometimes worse with movement.He reports that his bowel movements are typically formed. His weight has been stable. He has been using tramadol sparingly.He is able to tolerate diet much better and overall he feels that his symptoms from pancreas have improved.Known alcoholic chronic pancreatitis and recurrent episodes of pancreatitis related to ongoing alcohol use and smoking. Imaging showed focal mass like abnormality in the pancreatic head which on MR well as endoscopic ultrasound appears to be focal fat deposition with EUS showing features of chronic pancreatitis, both GI Symptoms or Concerns Mr. Kaylyn meyers is a 45-year-old male scheduled for a phone call followup today. At the time of phone call, consent was obtained.He reports exacerbation of upper abdominal pain after his recent EUS procedure. He underwent EUS to follow up on mass-like appearance noted on recent MRI, T1 hyperintense, in the setting of chronic pancreatitis. Endoscopic ultrasound evaluation showed features of chronic pancreatitis including ductal changes, and no clear mass was noted in the area of the pancreatic head as seen on MRI and focal fat deposition was also noted that could be causing the MRI appearance. Cytology was obtained and prelim showed benign necrotic tissue.Today, he reports that the pain is less frequent than the preceding 2 days. He describes epigastric pain with radiation to the back. This is similar to his prior pancreatitis pain. However, he feels symptoms may be improving and he prefers to avoid going to the ER. He is able to tolerate some liquids today.He also reca GI Symptoms or Concerns Mr. Kaylyn meyers is a 45-year-old male scheduled for a phone call followup appointment. At the time of phone call, consent was obtained.He was last evaluated on October 20 for recurrent acute pancreatitis. Please refer to my previous note from last evaluation for details.He confirms that he was able to quit drinking successfully and has not had any alcohol now for more than 6 weeks. Overall, he also reports improvement in his abdominal pain and symptoms. He is able to eat well and has gained 6 to 7 pounds now. He continues Creon. He denies any nausea, vomiting. He continues to smoke, but has a set date to quit for December 10 and has nicotine replacement prescriptions from his primary to help. He tells me that he has switched to drinking more coffee and also is eating some ice cream at night to inhibit his craving for alcohol.Last MRI from October 28 showed pancreatic ductal dilation with question of extrinsic compression within the pancreatic head without any clear mas GI Symptoms or Concerns Mr. Kaylyn meyers is a 45-year-old male, scheduled for an urgent televisit followup appointment. At the time of phone call, consent was obtained.He reports exacerbation of pain over the last 1 week and went to his local ER and underwent blood work and CT scan yesterday at [facility]. His white cell count was mildly elevated at 12.15, with elevated lipase of 2796, upper limit of normal being 300, and normal liver enzymes. CT scan again showed peripancreatic inflammatory changes and fluid collection in the pancreatic head with proximal pancreatic duct dilation. Bilateral adrenal thickening was also noted. MRI was suggested. He tells me that the ER doctor told him he did not need hospital admission as he was feeling better. Today, he is able to tolerate liquids and he received hydrocodone prescription for pain control, which is adequately helping him with pain.He had a similar exacerbation in September when he was hospitalized at [facility]. At that time, his lipase was signifi GI Symptoms or Concerns Mr. Kaylyn meyers is a 45-year-old male who presents in the clinic today for followup. He reports doing relatively better over the last 6-8 weeks. In July, he had a 4-week period of abstinence and recalls feeling better in terms of abdominal symptoms. Since then, he has been drinking a few beers occasionally. He continues to smoke. Bowel movements have been variable. He is currently taking about 4-5 capsules of Creon a day. He feels that Creon has helped him digest better.He continues to wonder about long-term effects of alcohol use and smoking. Currently denies any abdominal pain, but has had recurrent mild epigastric and right-sided discomfort. Upper endoscopy last month did not reveal any concerning abnormalities. Mild duodenitis was noted. Biopsies were normal. GI Symptoms or Concerns Mr. Kaylyn meyers is a 45-year-old male, scheduled for a phone call followup appointment today. At the time of phone call, consent was obtained.He was recently hospitalized with acute pancreatitis in mid May. He has had several hospitalizations related to pancreatitis over the last 2 years. He reports heavy alcohol usage in the past prior to onset of pancreatitis and since then he has cut back substantially, but continues to drink. He also continues to smoke. Since his recent hospitalization, he has had some improvement. However, he continues to have flare-ups of epigastric pain several times a week. This includes nausea and vomiting. It lasts for several hours and he is able to manage this at home with avoiding food and drinking liquids. He denies any fevers or chills.Last CT scan last month showed changes of acute pancreatitis with a 10 mm cystic collection within the body of the pancreas and mild dilation of pancreatic duct. Mild duodenitis was also noted on the CT scan Functional Status Date Functional Assessmen t No Information Instructions Date Instruction Additional Infor juanita At this point I alex mmend repeating an ERCP for stent change/upsizing in about a month or 2. I asked him to continue working with his primary care doctor to reduce or quit smoking as well of course to quit alcohol use as well. He asked good questions and has a good understanding of the issues at hand. Related to Alcohol-induced chronic pancreatitis 1. Reviewed CT scan results. 2. Recommend ERCP to help with pancreatic duct narrowing. Reviewed risks of procedure vs risks of no intervention.3. Recommend EUS to follow up on mass abnormality in pancreatic head. 4. Recommend avoiding alcohol. 5. Recommend avoiding smoking. Discussed risk of ongoing strictures/complications related to pancreas with smoking. 6. Continue tramadol as needed. 7. Continue creon. 8. Follow up in 2 months. Related to Chronic pancreatitis, unspecified pancreatitis type Colon Cancer Prevention Related to Colorectal polyps Colon Polyps Related to Color ectal polyps 1. Stool test. 2. Co lonoscopy. 3. Discuss about diabetes treatment adjustments with your primary. May need to consider insulin therapy if high glucose levels persist. 4. Recommend imodium 2 mg, 1-2 tabs in the morning daily, can taper down as symptoms improve in the next 2-4 weeks. 5. Continue creon. 6. Recommend avoiding alcohol and smoking. 7. Follow up in 3 months. Related to Diarrhea, unspecified type 1. Discussed risk of recurrence or complications with ongoing alcohol use. I recommend strictly avoiding alcohol. 2. Recommend quitting smoking. 3. Continue creon. 4. Use tramadol as needed for pain. 5. Suggest discussing about back pain flare ups with your primary provider. 6. Follow up in 3 months. Related to Chronic pancreatitis, unspecified pancreatitis type 1. Congratulations o n quitting alcohol. 2. Discussed complete avoidance buttermaker continuous churn. 3. Reviewed MRI results; improving changes, need to repeat in 3 months for follow up. 4. Keep up with your plan to quit smoking. 5. Continue creon. 6. Avoid excessive fat intake. 7. Follow up in 3 months, please call back sooner if worsening symptoms. Related to Alcohol-induced acute pancreatitis, unspecified complication status 1. Recommend MRI/MRC P of pancreas. 2. Discussed about avoiding all alcohol use. 3. Discussed about quitting smoking. 4. Reviewed about going back to the ER for hospital treatment for pancreatitis (IV fluids, pain control) if worsening pain, vomiting, unable to tolerate liquids/food or fevers/chills or feel very weak 5. Drink plenty of liquids. Reviewed about gradually advancing diet as tolerated. Continue creon.6. Follow up in 4 weeks. Related to Recurrent acute pancreatitis 1. Continue creon. 2 . Avoid alcohol use completely. 3. Recommend quitting smoking. 4. Discussed about risks of pancreatitis and complications. 5. Continue omeprazole 20 mg daily for 4-6 weeks. 6. Follow up in 3 months. Related to Alcohol-induced acute pancreatitis, unspecified complication status 1. Discussed about p ancreatitis, complications, role of alcohol and smoking. 2. Recommend avoiding alcohol completely. 3. Take omeprazole 20 mg daily for 1 month.4. Keep upper endoscopy appt. 5. Suggest starting creon.6. Follow up in 4 weeks. Related to Alcohol-induced acute pancreatitis, unspecified complication status Assessments Type Assessment Date No Information Patient Care Teams Name Effective Dates (start - stop) Status Members No Information
--- OUTSIDE RECORDS SUMMARY | 2023-03-12 10:49 | XMS_ITS | Continuity of Care Document ---
Author Name Unknown Organization [facility] Address [address] [address] [place] [address] Phone Care Team Providers Care Tire Curer Name Role Phone Darrian Carreon MD Unavailable [...] Diagnoses Date Provider Providers Copied on Encounter [facility], [address] [address], [place], [address], [place] tel:[phone] [facility] No Information 3 Velma Colmenares. [address], [place], [address] , [place]. tel: [phone] [facility], [address] [address], [place], [address], [place] tel:[phone] [facility] No Information 3 Velma Colmenares. [address], [place], [address] , [place]. tel: [phone] [facility], [address] [address], [place], [address], [place] tel:[phone] [facility] Pancreatic duct stricture 3 Velma Colmenares. [address], [place], [address] , [place]. tel: [phone] [facility], [address] [address], [place], [address], [place] tel:[phone] [facility] No Information 3 Velma Colmenares. [address], [address], [place], [address] , [place]. tel: [phone] Referring Provider: [place], [address] [place], [address]. tel:[phone] Established Level 4 [facility], [address] [address], [place], [address], [place] tel:[phone] [facility] GI Symptoms or Concerns (chief complaint) Alcohol-induce d chronic pancreatitis Apr-0 3 Velma Colmenares. [address], [address], [place], [address] , [place]. tel: [phone] Referring Provider: [place], [address] [place], [address]. tel:[phone] [facility], [address] [address], [place], [address], [place] tel:[phone] [facility] No Information 3 Berhane armendariz. [address], [address], [place], [address] , [place]. tel: [phone] [facility], [address] [address], [place], [address], [place] tel:[phone] [facility] Alcohol-induce d chronic pancreatitis 3 Velma Colmenares. [address], [address], [place], [address] , [place]. tel: [phone] [facility], [address] [address], [place], [address], [place] tel:[phone] [facility] No Information [address] [facility], [address], [place], [address] , [place]. tel: [phone] Referring Provider: Darrian Carreon MD, [address] [facility] [address], [place], [address]. tel:[phone] [facility], [address] [address], [place], [address], [place] tel:[phone] [facility] No Information 3 Berhane armendariz. [address], [address], [place], [address] , [place]. tel: [phone] [facility], [address] [address], [place], [address], [place] tel:[phone] [facility] Alcohol-induce d chronic pancreatitis 3 Velma Colmenares. [address], [address], [place], [address] , [place]. tel: [phone] [facility], [address] [address], [place], [address], [place] tel:[phone] [facility] No Information 3 Velma Colmenares. [address], [address], [place], [address] , [place]. tel: [phone] Referring Provider: Darrian Carreon MD, [address] [facility] [address], [place], [address]. [phone] Established Level 3 [facility], [address] [address], [place], [address], [place] tel:[phone] [facility] GI Symptoms or Concerns (chief complaint) Chronic pancreatitis, unspecified pancreatitis typePancreatic duct stricture 3 Berhane armendariz. [address], [address], [place], [address] , [place]. tel: [phone] Referring Provider: Referral Self, USE FOR SELF REFERRALS. [facility], [address] [address], [place], [address], [place] tel:[phone] [facility] Dark stools 2 Velma Colmenares. [address], [address], [place], [address] , [place]. tel: [phone] [facility], [address] [address], [place], [address], [place] tel:[phone] [facility] Pancreatic duct stricture 2 Velma Colmenares. [address], [address], [place], [address] , [place]. tel: [phone] [facility], [address] [address], [place], [address], [place] tel:[phone] [facility] No Information 2 Velma Colmenares. [address], [address], [place], [address] , [place]. [phone] Referring Provider: Darrian Carreon MD, [address], [place], [address]. tel:[phone] Established Level 4 [facility], [address] [address], [place], [address], [place] tel:[phone] [facility] GI Symptoms or Concerns (chief complaint) Chronic pancreatitis, unspecified pancreatitis typeRecurrent acute pancreatitisPa ncreatic duct stricture [address] [facility], [address], [place], [address] , [place]. [phone] Referring Provider: Referral Self, USE FOR SELF REFERRALS. [facility], [address] [address], [place], [address], [place] tel:[phone] [facility] GI Symptoms or Concerns (chief complaint) Colorectal polypsDiarrhea , unspecifiedBen ign neoplasm of cecumBenign neoplasm of ascending colonBenign neoplasm of transverse colonBenign neoplasm of cecum 2 Marie Sanderson. [address], [address], [place], [address] , [place]. [phone] Referring Provider: Referral Self, USE FOR SELF REFERRALS. [facility], [address] [address], [place], [address], [place] tel:[phone] [facility] No Information [address] [facility], [address], [place], [address] , [place]. tel:[phone] [facility], [address] [address], [place], [address], [place] tel:[phone] [facility] Recurrent acute pancreatitis 2 Berhane armendariz. [address], [address], [place], [address] , [place]. [phone] Established Level 4 [facility], [address] [address], [place], [address], [place] tel:[phone] [facility] GI Symptoms or Concerns (chief complaint) Diarrhea, unspecified typeChronic pancreatitis, unspecified pancreatitis typeEncounter for screening for malignant neoplasm of colonHyperglyc emia 2 Berhane durham [address], [address], [place], [address] , [place]. [phone] Referring Provider: Referral Self, USE FOR SELF REFERRALS. [facility], [address] [address], [place], [address], [place] tel:[phone] [facility] No Information 2 Mayte Combs [address], [address], [place], [address] , [place]. [phone] Established Level 3 [facility], [address] [address], [place], [address], [place] tel:[phone] [facility] GI Symptoms or Concerns (chief complaint) Chronic pancreatitis, unspecified pancreatitis typeAlcohol useRecurrent pancreatitis 2 Berhane durham [address], [address], [place], [address] , [place]. [phone] Referring Provider: Referral Self, USE FOR SELF REFERRALS. [facility], [address] [address], [place], [place], [address], [place] tel:[phone] [facility] Abnormal liver function test 2 Berhane durham [address], [address], [place], [address] , [place]. [phone] Established Level 4 [facility], [address] [address], [place], [address], [place] tel:[phone] [facility] GI Symptoms or Concerns (chief complaint) Epigastric painChronic pancreatitis, unspecified pancreatitis typeRecurrent acute pancreatitis [address] [facility], [address], [place], [address] , [place]. [phone] Referring Provider: Referral Self, USE FOR SELF REFERRALS. [facility], [address] [address], [place], [address], [place] tel:[phone] [facility] No Information [address] [facility], [address], [place], [address] , [place]. tel:[phone] Referring Provider: Marielle Grant MD, [address] [facility] [address], [place], [address]. [phone] [facility], [address] [address], [place], [address], [place] tel:[phone] [facility] Pancreatic duct dilatedPancrea tic abnormalityDuo denitis [address] [facility], [address], [place], [address] , [place]. tel:[phone] Established Level 3 [facility], [address] [address], [place], [address], [place] tel:[phone] [facility] GI Symptoms or Concerns (chief complaint) Alcohol-induce d acute pancreatitis, unspecified complication statusPancreat ic duct dilated 2 [address] [facility], [address], [place], [address] , [place]. [phone] Referring Provider: Noemi Acuna DO, [address] [place] [address], [address]. tel:[phone] Established Level 5 [facility], [address] [address], [place], [address], [place] tel:[phone] [facility] Recurrent acute pancreatitisPa ncreatic duct dilatedPancrea tic cyst [address] [facility], [address], [place], [place], [address] , [place]. [phone] Referring [place]: [place], [address] [place], [address]. tel:[phone] Init Hosp-da E&m Mod Severity [facility], [address] [address], [place], [address], [place] tel:[phone] [facility] No Information [address] [facility], [address], [place], [place], [address] , [place]. tel:[phone] Referring Provider: Jimmie Ernandez, [address] [facility] [address], [place], [address]. tel:[phone] Offic/outpt E&m Estab Mod-hi 2 [facility], [address] [address], [place], [address], [place] tel:[phone] [facility] GI Symptoms or Concerns (chief complaint) Alcohol-induce d acute pancreatitis, unspecified complication status [address] [facility], [address], [facility] [place], [address] , [place]. tel:[phone] Referring Provider: Referral Self, USE FOR SELF REFERRALS. [facility], [address] [address], [place], [address], [place] tel:[phone] [facility] No Information [address] [facility], [address], [place], [place], [address] , [place]. [phone] Referring Provider: Oralia Patel, [address] [facility] [address], [place], [address]. tel:[phone] [facility], [address] [address], [place], [address], [place] tel:[phone] [facility] Abnormal CT scan, gastrointestin al tractDuodeniti sUnspecified abdominal painAbnormal findings on dx imaging of prt digestive tract 1 Lorie Barton . [address], [address], [place], [address] , [place]. [phone] Referring Provider: Referral Self, USE FOR SELF REFERRALS. Established Level 3 [facility], [address] [address], [place], [address], [place] tel:[phone] [facility] GI Symptoms or Concerns (chief complaint) Alcohol-induce d acute pancreatitis, unspecified complication statusPancreat ic insufficiencyS mokingAlcohol use 1 Berhane armendariz. [address], [address], [place], [address] , [place]. [phone] Referring Provider: Referral Self, USE FOR SELF REFERRALS. [facility], [address] [address], [place], [address], [place] tel:[phone] [facility] No Information 1 Venkatesh Brady. [address], [address], [place], [address] , [place]. [phone] Init Hosp-da E&m Mod Severity [facility], [address] [address], [place], [address], [place] tel:[phone] [facility] No Information 1 Balta Goodman. [address], [address], [facility] [place] [address] , [place]. [phone] Referring Provider: Maxine Dubose, [address], [place], [address]. tel:[phone] Init Inpt Cons New/est Mod-hi [facility], [address] [address], [place], [address], [place] tel:[phone] [facility] No Information [address] [facility], [address], [facility], [address] , [place]. tel: [phone] Referring Provider: Ed Valentine MD, [address] [facility] [address] [facility], [place], [address]. tel:[phone] Init Inpt Cons New/est Mod-hi [facility], [address] [address], [place], [address], [place] tel:[phone] [facility] No Information [address] [facility], [address], [facility], [place], [address] , [place]. tel: [phone] Referring Provider: Jones GAN, [address] [facility], [place], [address]. tel:[phone] [facility], [address] [address], [place], [address], [place] tel:[phone] [facility] Acute pancreatitis without infection or necrosis, unspecified pancreatitis type [address] [facility], [address], [place], [address] , [place]. tel: [phone] [facility], [address] [address], [place], [address], [place] tel:[phone] [facility] Acute pancreatitis without infection or necrosis, unspecified pancreatitis type [address] [facility], [address], [facility] [facility], [address] , [place]. tel: [phone] [facility], [address] [address], [place], [address], [place] tel:[phone] [facility] No Information 9 Rudy Obregon [address] [place] [address], [place], [place], [address] , [place]. tel:[phone] Referring Provider: Marielle Grant MD, [address] [place] [address], [place], [address]. [phone] [facility], [address] [address], [place], [place], [address], [place] tel:[phone] [facility] Alcohol induced acute pancreatitis with uninfected necrosis Jun-2 [address] [facility], [facility] [address], [place], [place], [address] , [place]. tel:[phone] Sub[facility] Hosp-da E&m Stable 15 M [facility], [address] [address], [place], [place], [address], [place] tel:[phone] [facility] No Information Jun-0 9 Chris Romero. [address] [place] [address], [place], [place], [address] , [place]. tel:[phone] Referring Provider: Heather LEWIS, [address] [place] [address], [place], [address]. tel:[phone] Family History Family Member Type Diagnosis Age At Onset Brother Problem (finding) Diabetes mellitus Father Problem (finding) Alive and well Sister Problem (finding) Alive and well Brother Problem (finding) Obesity Mother Problem (finding) Alive and well Immunizations Vaccine Date Status Comments Pneumococcal conjugate vacci ne 20-valent (PCV20), polysaccharide XVC092 conjugate, adjuvant, preservative free administered Note: MIIC [...] Registry Payers Payer name Insurance type Covered democrat ID Authoriza tion(s) No Information Social History Type Description Quantity Date Captured Comments Alcohol Use Details Unknown Caffeine Use Details Unknown Tobacco Use Status Smoking Status No Information Sex Male Chief Complaint And Reason For Visit No Information Reason For Referral Reason For Referral No Information Plan Of Treatment Date Type Action Status Referral Ordered: follow-up visit with tx, pancreas clinic in 2 months ordered Referral Ordered: ERCP Appointment date/timeframe: 01/24/2022 ordered Referral Ordered: follow-up visit with tx pancreas clinic in 3 months ordered Referral Ordered: Colonoscopy Appointment date/timeframe: 12/27/2021 ordered Referral Ordered: Lipase Appointment date/timeframe: 04/05/2021 ordered Referral Ordered: CBC w/diff Appointment date/timeframe: 04/05/2021 ordered Referral Ordered: Hepatic Function Panel Appointment date/timeframe: 04/05/2021 ordered Referral Ordered: MRCP [...] he has also set up consult with mechanical integrity specialist.He reports continued smoking, although he has [...] he has had 2 ER visits to [facility] requiring hospitalization for acute pancreatitis.He reports [...] blood work and CT scan yesterday at [place]. His white cell count was mildly elevated [...] in September when he was hospitalized at [facility]. At that time, his lipase was signifi [...] n quitting alcohol. 2. 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 3. Reviewed MRI results; improving changes, need [...]
--- NOTE | 2023-03-12 10:55 | ED_ITS ---
HPI - Fall General Date Seen: 03/12/23 Chief Complaint: Fall/Minor Trauma Stated Complaint: right ear pain from fall last week Time Seen by Provider: 03/12/23 09:52 Source: patient Mode of arrival: ambulatory Limitations: no limitations History of Present Illness HPI Narrative: Patient is a 47-year-old gentleman with a history of a previous TBI presents here with a head injury, he fell in his garage, from approximately a 6 ft height while he was on a ladder. He landed on right a simple side of his head, he thinks there was a loss of consciousness but cannot confirm this for me, he got up, was able to walk around he is a little bit of neck stiffness, denies any significant nausea vomiting, diplopia double vision, but he does feel little bit dizzy when he sits up or moves his head since this occurred. He noted that he had some blood coming out of the right ear initially, this is now gone away. He also noted that he had a little bit of bleeding out of the right side of his nose. This also has gone away, he says he feels a little full in the right side of his head, with the little bit of decreased hearing out of his right ear. Has not drank alcohol for about a week, but does have a history of somewhat excessive alcoholic intake in the past, with a history of pancreatitis. Is on a daily aspirin. Drove himself here, Tells me over the last few days he wanted to come in, but just could not bring himself to. Denies any numbness tingling weakness in the hands or the feet, TTA was not called in triage MD complaint: fall Onset (ago): day(s) Fall from: from height (distance) (3ft) Fall witnessed: no Place fall occurred: home Loss of consciousness: Yes Prolonged down time: unclear Symptoms prior to fall: none Context: tripped/slipped Location of injury: head Severity: moderate Associated symptoms (after fall): neck pain and lightheaded Related Data Home Medications Medication Instructions Recorded Confirmed atorvastatin 20 mg tablet 20 mg PO HS 09/22/21 03/12/23 citalopram 20 mg tablet 20 mg PO DAILY 09/22/21 03/12/23 cyanocobalamin (vitamin B-12) 1,000 mcg PO DAILY 09/22/21 03/12/23 1,000 mcg tablet [id number] 2 cap PO TIDWM 09/22/21 03/12/23 24,000-76,000-120,000 unit capsule,delayed rel (Creon) lisinopril 10 mg tablet 10 mg PO DAILY 09/22/21 03/12/23 metformin 500 mg tablet 1,000 mg PO BIDWM 09/22/21 03/12/23 omeprazole 40 mg capsule,delayed 40 mg PO DAILY 09/22/21 03/12/23 release propranolol 80 mg capsule,24 80 mg PO DAILY 09/22/21 03/12/23 hr,extended release aspirin 81 mg tablet,delayed 81 mg PO DAILY 09/23/21 03/12/23 release (Adult Aspirin Regimen) multivitamin 1 tab PO DAILY 09/23/21 09/23/21 glipizide 2.5 mg tablet, extended 2.5 mg PO DAILY 03/12/23 03/12/23 release 24 hr Allergies Allergy/AdvReac Type Severity Reaction Status Date / Time No Known Drug Allergies Allergy Verified 10/13/22 14:53 Review of Systems Status of ROS: Reports: 10 or more systems reviewed and unremarkable except as noted in History and below [facility] Medical History Pancreatic insufficiency ?K86.89 - Other specified diseases of pancreas (ICD-10) 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 ?K86.89 - Other specified diseases of pancreas (ICD-10) Pancreatitis ?K85.90 - Acute pancreatitis without necrosis or infection, unspecified (ICD- 10) Anxiety ?F41.9 - Anxiety disorder, unspecified (ICD-10) Diabetes type 2, controlled ?E11.9 - Type 2 diabetes mellitus without complications (ICD-10) Chronic pancreatitis ?K86.1 - Other chronic pancreatitis (ICD-10) Hyperlipidemia ?E78.5 - Hyperlipidemia, unspecified (ICD-10) Hypertension ?I10 - Essential (primary) hypertension (ICD-10) CAD (coronary artery disease) ?I25.10 - Atherosclerotic heart disease of [place] coronary artery without angina pectoris (ICD-10) Surgical History No significant past surgical history Social History Highest level of school completed/degree received: Associate degree: occupational, technical, vocational program Smoking Status: Current every day smoker What tobacco products do you use: cigarettes Smoking packs per day: 1 Smoking cigarettes per day: 20.0 Years smoked: 35 Smoking pack-years: 35.00 Second hand tobacco smoke exposure: No How often do you have a drink containing alcohol: 2-4 times a month Alcohol type: beer How many standard drinks containing alcohol do you have on a typical day: 3 or 4 How often do you have six or more drinks on one occasion: Never AUDIT-C Alcohol total score: 3 Non-prescribed substance use: denies use Caffeine: No service: No Exam Narrative: Exam Narrative: Patient is seen and stabilization room 2 he appears to be in no distress, very chatty. Pupils are equal round reactive to light he does have bilateral horizontal nystagmus [address]. There is no vertical component, extraocular muscles are normal yet. Cervical spine is the normal range of motion from 20 cm through 6 cm, side flexion is normal, a 20?, his rotation is 75? bilaterally, a little bit of pain when he looks to the right. He describes this as tightness on the right side of his neck. No cervical spine tenderness noted. I do not see blood nor do I see a Mukherjee sign. Around his ear. Oropharynx has normal mouth opening no evidence of bruising, nasal mucosa normal bilaterally. He does have a right-sided hemotympanum noted. No blood in the external canal, left side is normal. No facial swelling bruising noted. He does have a bit of bruising over the right occiptal , and fullness. The chest is good air entry bilaterally with no wheezing crackles noted, some large skin tags are noted on his back. No tenderness. Cardiac shows good heart sounds, S1-S2 are normal there is no S3-S4 there is no bruising or his chest, his abdomen is soft, there is no guarding, no organomegaly. Bowel sounds are normal. No bruising noted. Moves all extremities independently well is able to tandem walk for me slowly but surely with no stepping out. Proximal muscles both upper and lower seem a little but decreased bulk but symmetrical. No tremors are noted. GCS is 15/15 or alert and oriented x3. Const: Vital Signs, click to edit/add: Vital Signs - 24 hr 01/01/24 09:45 03/12/23 11:07 03/12/23 11:08 Temperature 97.7 F Pulse Rate 82 82 Pulse Rate [Pulse Oximeter] 83 Respiratory Rate 18 Blood Pressure 129/85 Blood Pressure [Ri ght Upper Arm] 128/83 Pulse Oximetry 100 96 94 03/12/23 11:15 03/12/23 11:30 03/12/23 11:45 Temperature Pulse Rate 82 81 84 Pulse Rate [Pulse Oximeter] Respiratory Rate Blood Pressure Blood Pressure [Ri ght Upper Arm] Pulse Oximetry 95 97 98 03/12/23 12:00 03/12/23 12:15 03/12/23 12:30 Temperature Pulse Rate 81 79 81 Pulse Rate [Pulse Oximeter] Respiratory Rate Blood Pressure Blood Pressure [Ri ght Upper Arm] Pulse Oximetry 96 95 95 Documenting provider has reviewed patient's vital signs: yes Course Course ED Course: I spoke to the [place] emergency room, patient will be transferred there for ER and neurosurgical specialty evaluation, given his history of possible left temporal bleed, right temporal fracture. Fall, head injury. Vital Signs Vital signs: Initial Vital Signs Temperature 97.7 F 03/12/23 09:45 Temperature Source Temporal Artery Scan 03/12/23 09:45 Pulse Rate 83 03/12/23 09:45 Respiratory Rate 18 03/12/23 09:45 Blood Pressure 128/83 03/12/23 09:45 Blood Pressure Mean 98 03/12/23 09:45 Pulse Oximetry 100 03/12/23 09:45 Vital Signs Temperature 97.7 F 03/12/23 09:45 Pulse Rate 83 03/12/23 09:45 Respiratory Rate 18 03/12/23 09:45 Blood Pressure 128/83 03/12/23 09:45 Pulse Oximetry 100 03/12/23 09:45 Temperature 97.7 F 03/12/23 09:45 Pulse Rate 81 03/12/23 12:30 Respiratory Rate 18 03/12/23 09:45 Blood Pressure 129/85 03/12/23 11:07 Pulse Oximetry 95 03/12/23 12:30 MDM - Fall MDM Narrative Medical decision making narrative: Life-threatening differential diagnosis is considered include: Subarachnoid hemorrhage, subdural hemorrhage, epidural hemorrhage. Other differential diagnosis considered include concussion, closed head injury, or neck fracture. Patient is basically neurologically intact 4 days out with the findings of hemotympanum follow-up, head injury. The setting of previous TBI. We were able to get a CT immediately, so a TTA was not called. Medical Records Attestation: I reviewed the patient's medical records. Lab Data Attestation: I reviewed the patient's lab results. Imaging Data CT scan - head: Attestation: I have reviewed the pertinent imaging results. My impression: Patient: ASHLYN MILLIGAN Facility:?[facility] Patient ID:?[id number] Site Patient ID:?[id number]. Site :?[id number] Study:?CT Spine Cervical W/O-03/12/2023 10:49:28 AM Ordering Physician:Yenni Donis Final Report: Indication: Pain following trauma. Technique: CT Head: Performed without IV contrast CT Cervical Spine: Performed without IV contrast. Comparison: None available. Findings: Head: Linear nondisplaced fracture through the right petrous temporal bone, with its cephalad margin near the junction of the right transverse and sigmoid dural venous sinuses. This is associated with blood/fluid in the middle ear cleft and in right mastoid air cells. The left temporal bone is well aerated, and no additional fractures are identified. There is a 15 mm focus of hyperattenuation along the inferior aspect of the left middle cranial fossa. No associated mass effect at this time. Differential possibilities include an acute parenchymal hemorrhage versus a small h yperattenuating mass. MRI could be considered for clarification. 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 Background moderate cerebral atrophy. Cervical Spine: There is mild reversal of the normal cervical lordosis, which can be positional or seen with muscle spasm. No traumatic subluxation identified. No evidence for fracture. Scattered spondylosis, including advanced disc degeneration at C5-6 where there is moderate foraminal narrowing. The paraspinal soft tissues are grossly negative. I discussed the findings of both exams with Dr. Parr on 03/12/2023 at 1130 hours. Impression: CT Head: 1. There is a 15 mm hyperattenuating focus along the floor of the left middle cranial fossa which may represent an acute parenchymal hemorrhage. 2. There is a linear fracture through the right petrous temporal bone, with blood/fluid in the right mastoid and middle ear cleft. 3. 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 CT Cervical Spine: 1. No fracture or traumatic subluxation identified. 2. Spondylosis. Please note that all CT scans at this facility use dose modulation, iterative reconstruction, and/or weight-based dosing when appropriate to reduce radiation dose to as low as reasonably achievable. Dictated by Koby Galarza MD @ 03/12/2023 11:45:24 AM (Electronic Signature) Patient: ASHLYN MILLIGAN Facility:?[facility] Patient ID:?[id number] Site Patient [id number]:?[id number]. Site :?[id number] Study:?CT Head W/O-03/12/2023 10:49:58 AM Ordering Physician:Yenni Donis Final Report: Indication: Pain following trauma. Technique: CT Head: Performed without IV contrast CT Cervical Spine: Performed without IV contrast. Comparison: None available. Findings: Head: Linear nondisplaced fracture through the right petrous temporal bone, with its cephalad margin near the junction of the right transverse and sigmoid dural venous sinuses. This is associated with blood/fluid in the middle ear cleft and in right mastoid air cells. The left temporal bone is well aerated, and no additional fractures are identified. There is a 15 mm focus of hyperattenuation along the inferior aspect of the left middle cranial fossa. No associated mass effect at this time. Differential possibilities include an acute parenchymal hemorrhage versus a small hyperattenuating mass. MRI could be considered for clarification. 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 Background moderate cerebral atrophy. Cervical Spine: There is mild reversal of the normal cervical lordosis, which can be positional or seen with muscle spasm. No traumatic subluxation identified. No evidence for fracture. Scattered spondylosis, including advanced disc degeneration at C5-6 where there is moderate foraminal narrowing. The par aspinal soft tissues are grossly negative. I discussed the findings of both exams with Dr. Parr on 03/12/2023 at 1130 hours. Impression: CT Head: 1. There is a 15 mm hyperattenuating focus along the floor of the left middle cranial fossa which may represent an acute parenchymal hemorrhage. 2. There is a linear fracture through the right petrous temporal bone, with blood/fluid in the right mastoid and middle ear cleft. 3. 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 CT Cervical Spine: 1. No fracture or traumatic subluxation identified. 2. Spondylosis. Please note that all CT scans at this facility use dose modulation, iterative reconstruction, and/or weight-based dosing when appropriate to reduce radiation dose to as low as reasonably achievable. Dictated by Koby Galarza MD @ 03/12/2023 11:45:03 AM (Electronic Signature) Discharge Plan Discharge Clinical Impression: Closed fracture of temporal bone, History of closed head injury, Hemorrhage of left temporal lobe Patient Disposition: Xfer Other Condition: Guarded Activity Level: Light activity Prescriptions: No Action glipizide 2.5 mg tablet extended release 24hr 2.5 mg PO DAILY metformin 500 mg tablet 1,000 mg PO BIDWM atorvastatin 20 mg tablet 20 mg PO HS cyanocobalamin (vitamin B-12) 1,000 mcg tablet 1,000 mcg PO DAILY omeprazole 40 mg capsule,delayed release(DR/EC) 40 mg PO DAILY citalopram 20 mg tablet 20 mg PO DAILY lisinopril 10 mg tablet 10 mg PO DAILY propranolol 80 mg capsule,extended release 24 hr 80 mg PO DAILY Creon 24,000-76,000 -120,000 unit capsule,delayed release(DR/EC) 2 cap PO TIDWM Rx Instructions: PLUS 1 CAPSULE WITH SNACKS aspirin [Adult Aspirin Regimen] 81 mg tablet,delayed release (DR/EC) 81 mg PO DAILY multivitamin Tablet 1 tab PO DAILY Stand Alone Forms: [employer] Info Instructions
--- NOTE | 2023-03-12 13:25 | ED.NURSE ---
Report to [facility]
== END 2023-03-12 12:47 | disposition other institution (70) ==
PROVIDERS: Emergency Provider Family Medicine; PCP Family Medicine
DX: S02.19XA Other fracture of base of skull, initial encounter for closed fracture (principal); W11.XXXA Fall on and from ladder, initial encounter; H73.891 Other specified disorders of tympanic membrane, right ear
CPT/HCPCS: 70450; 72125; 99284; 99285; 99291; G0390

== ENCOUNTER 2023-03-12 12:27 | Outpatient (CLI) | payer BC, SELFPAY ==
--- OUTSIDE RECORDS SUMMARY | 2023-03-18 05:48 | XMS_ITS | Continuity of Care Document ---
Author Name Unknown Organization [facility] Address [address] [address] [place] [address] Phone Care Team Providers Care Ferry Captain Name Role Phone Darrian Carreon MD Unavailable [...] Diagnoses Date Provider Providers Copied on Encounter [facility], [address] [address], [place], [address], [place] tel:[phone] [facility] No Information 3 Velma Colmenares. [address], [place], [address] , [place]. tel: [phone] [facility], [address] [address], [place], [address], [place] tel:[phone] [facility] No Information 3 Velma Colmenares. [address], [place], [address] , [place]. tel: [phone] [facility], [address] [address], [place], [address], [place] tel:[phone] [facility] Pancreatic duct stricture 3 Velma Colmenares. [address], [place], [address] , [place]. tel: [phone] [facility], [address] [address], [place], [address], [place] tel:[phone] [facility] No Information 3 Velma Colmenares. [address], [place], [address] , [place]. tel: [phone] Referring Provider: [place], [address] [place], [address]. tel:[phone] Established Level 4 [facility], [address] [address], [place], [address], [place] tel:[phone] [facility] GI Symptoms or Concerns (chief complaint) Alcohol-induce d chronic pancreatitis Apr-0 3 Velma Colmenares. [address], [place], [address] , [place]. tel: [phone] Referring Provider: [place], [address] [place], [address]. tel:[phone] [facility], [address] [address], [place], [address], [place] tel:[phone] [facility] No Information 3 Berhane armendariz. [address], [place], [address] , [place]. tel: [phone] [facility], [address] [address], [place], [address], [place] tel:[phone] [facility] Alcohol-induce d chronic pancreatitis 3 Velma Colmenares. [address], [place], [address] , [place]. tel: [phone] [facility], [address] [address], [place], [address], [place] tel:[phone] [facility] No Information 3 Velma Colmenares. [address] [facility], [place], [address] , [place]. tel: [phone] Referring Provider: Darrian Carreon MD, [address] [facility] [address], [place], [address]. tel:[phone] [facility], [address] [address], [place], [address], [place] tel:[phone] [facility] No Information 3 Berhane armendariz. [address], [place], [address] , [place]. tel: [phone] [facility], [address] [address], [place], [address], [place] tel:[phone] [facility] Alcohol-induce d chronic pancreatitis 3 Velma Colmenares. [address], [address], [place], [address] , [place]. tel: [phone] [facility], [address] [address], [place], [address], [place] tel:[phone] [facility] No Information 3 Velma Colmenares. [address], [place], [address] , [place]. tel: [phone] Referring Provider: Darrian Carreon MD, [address] [facility] [address], [place], [address]. [phone] Established Level 3 [facility], [address] [address], [place], [address], [place] tel:[phone] [facility] GI Symptoms or Concerns (chief complaint) Chronic pancreatitis, unspecified pancreatitis typePancreatic duct stricture 3 Berhane armendariz. [address], [place], [address] , [place]. tel: [phone] Referring Provider: Referral Self, USE FOR SELF REFERRALS. [facility], [address] [address], [place], [address], [place] tel:[phone] [facility] Dark stools 2 Velma Colmenares. [address], [place], [address] , [place]. tel: [phone] [facility], [address] [address], [place], [address], [place] tel:[phone] [facility] Pancreatic duct stricture 2 Velma Colmenares. [address], [place], [address] , [place]. tel: [phone] [facility], [address] [address], [place], [address], [place] tel:[phone] [facility] No Information 2 Velma Colmenares. [address] [facility] [address], [place], [address] , [place]. [phone] Referring Provider: Darrian Carreon MD, [address], [place], [address]. tel:[phone] Established Level 4 [facility], [address] [address], [place], [address], [place] tel:[phone] [facility] GI Symptoms or Concerns (chief complaint) Chronic pancreatitis, unspecified pancreatitis typeRecurrent acute pancreatitisPa ncreatic duct stricture 2 Berhane armendariz. [address] [facility], [place], [address] , [place]. [phone] Referring Provider: Referral Self, USE FOR SELF REFERRALS. [facility], [address] [address], [place], [address], [place] tel:[phone] [facility] GI Symptoms or Concerns (chief complaint) Colorectal polypsDiarrhea , unspecifiedBen ign neoplasm of cecumBenign neoplasm of ascending colonBenign neoplasm of transverse colonBenign neoplasm of cecum 2 Marie Sanderson. [address], [place], [address] , [place]. [phone] Referring Provider: Referral Self, USE FOR SELF REFERRALS. [facility], [address] [address], [place], [address], [place] tel:[phone] [facility] No Information 2 Berhane armendariz. [address] [facility], [place], [address] , [place]. tel:[phone] [facility], [address] [address], [place], [address], [place] tel:[phone] [facility] Recurrent acute pancreatitis 2 Berhane armendariz. [address], [place], [address] , [place]. [phone] Established Level 4 [facility], [address] [address], [place], [address], [place] tel:[phone] [facility] GI Symptoms or Concerns (chief complaint) Diarrhea, unspecified typeChronic pancreatitis, unspecified pancreatitis typeEncounter for screening for malignant neoplasm of colonHyperglyc emia 2 Berhane durham [address], [place], [place], [address] , [place]. [phone] Referring Provider: Referral Self, USE FOR SELF REFERRALS. [facility], [address] [address], [place], [address], [place] tel:[phone] [facility] No Information 2 Mayte Combs [address], [place], [address] , [place]. [phone] Established Level 3 [facility], [address] [address], [place], [address], [place] tel:[phone] [facility] GI Symptoms or Concerns (chief complaint) Chronic pancreatitis, unspecified pancreatitis typeAlcohol useRecurrent pancreatitis 2 Berhane durham [address], [place], [address] , [place]. [phone] Referring Provider: Referral Self, USE FOR SELF REFERRALS. [facility], [address] [address], [place], [address], [place] tel:[phone] [facility] Abnormal liver function test 2 Berhane udrham [address], [place], [address] , [place]. [phone] Established Level 4 [facility], [address] [address], [place], [address], [place] tel:[phone] [facility] GI Symptoms or Concerns (chief complaint) Epigastric painChronic pancreatitis, unspecified pancreatitis typeRecurrent acute pancreatitis 2 Berhane armendariz. [address] [facility], [place], [address] , [place]. [phone] Referring Provider: Referral Self, USE FOR SELF REFERRALS. [facility], [address] [address], [place], [address], [place] tel:[phone] [facility] No Information 2 Rudy Obregon [address] [facility], [address], [place], [place], [address] , [place]. [phone] Referring Provider: Marielle Grant MD, [address] [facility] [address], [place], [address]. [phone] [facility], [address] [address], [place], [place], [address], [place] tel:[phone] [facility] Pancreatic duct dilatedPancrea tic abnormalityDuo denitis 1 Berhane armendariz. [address] [facility], [address], [place], [address] , [place]. tel:[phone] Established Level 3 [facility], [address] [address], [place], [address], [place] tel:[phone] [facility] GI Symptoms or Concerns (chief complaint) Alcohol-induce d acute pancreatitis, unspecified complication statusPancreat ic duct dilated 2 1 Berhane armendariz. [address] [facility], [place], [address] , [place]. tel:[phone] Referring Provider: Noemi Acuna DO, [address] [place] [address], [address]. tel:[phone] Established Level 5 [facility], [address] [address], [place], [address], [place] tel:[phone] [facility] Recurrent acute pancreatitisPa ncreatic duct dilatedPancrea tic cyst 1 Berhane armendariz. [address] [facility], [address], [place], [place], [address] , [place]. [phone] Referring Provider: [place], [address] [place], [address]. tel:[phone] Init Hosp-da E&m Mod Severity [facility], [address] [address], [place], [address], [place] tel:[phone] [facility] No Information 1 Kimberley Samuel. [address] [facility], [address], [place], [place], [address] , [place]. tel:[phone] Referring Provider: Jimmie Ernandez, [address] [facility] [address], [place], [address]. [phone] Offic/outpt E&m Estab Mod-hi 2 [facility], [address] [address], [place], [address], [place] tel:[phone] [facility] GI Symptoms or Concerns (chief complaint) Alcohol-induce d acute pancreatitis, unspecified complication status 1 Berhane armendariz. [address] [facility], [address], [facility] [place], [address] , [place]. tel:[phone] Referring Provider: Referral Self, USE FOR SELF REFERRALS. [facility], [address] [address], [place], [address], [place] tel:[phone] [facility] No Information 1 Scar Vargas. [address] [facility], [address], [place], [place], [address] , [place]. [phone] Referring Provider: Oralia Patel, [address] [facility] [address], [place], [address]. tel:[phone] [facility], [address] [address], [place], [address], [place] tel:[phone] [facility] Abnormal CT scan, gastrointestin al tractDuodeniti sUnspecified abdominal painAbnormal findings on dx imaging of prt digestive tract 1 Lorie Barton . [address], [place], [address] , [place]. tel:[phone] Referring Provider: Referral Self, USE FOR SELF REFERRALS. Established Level 3 [facility], [address] [address], [place], [address], [place] tel:[phone] [facility] GI Symptoms or Concerns (chief complaint) Alcohol-induce d acute pancreatitis, unspecified complication statusPancreat ic insufficiencyS mokingAlcohol use 1 Berhane armendariz. [address], [place], [address] , [place]. tel:[phone] Referring Provider: Referral Self, USE FOR SELF REFERRALS. [facility], [address] [address], [place], [address], [place] tel:[phone] [facility] No Information 1 Venkatesh Brady. [address], [place], [address] , [place]. [phone] Init Hosp-da E&m Mod Severity [facility], [address] [address], [place], [address], [place] tel:[phone] [facility] No Information 1 Balta Goodman. [address] [facility] [address], [facility] [place], [address] , [place]. [phone] Referring Provider: Maxine Dubose, [address], [place], [address]. tel:[phone] Init Inpt Cons New/est Mod-hi [facility], [address] [address], [place], [address], [place] tel:[phone] [facility] No Information 0 Emory Prado. [address] [facility], [address], [facility] [place], [address] , [place]. tel: [phone] Referring Provider: Ed Valentine MD, [address] [facility] [address], [place], [address]. tel:[phone] Init Inpt Cons New/est Mod-hi [facility], [address] [address], [place], [address], [place] tel:[phone] [facility] No Information 9 Emory Prado. [address] [facility], [address], [facility], [place], [address] , [place]. tel: [phone] Referring Provider: Jones GAN, [address] [facility], [place], [address]. tel:[phone] [facility], [address] [address], [place], [address], [place] tel:[phone] [facility] Acute pancreatitis without infection or necrosis, unspecified pancreatitis type 9 Rudy Obregon [address] [facility], [place], [address] , [place]. tel: [phone] [facility], [address] [address], [place], [address], [place] tel:[phone] [facility] Acute pancreatitis without infection or necrosis, unspecified pancreatitis type 9 Rudy Obregon [address] [facility], [facility] [place], [address] , [place]. tel: [phone] [facility], [address] [address], [place], [address], [place] tel:[phone] [facility] No Information 9 Rudy Obregon [address] [place] [address], [place], [place], [address] , [place]. tel:[phone] Referring Provider: Marielle Grant MD, [address] [place] [address], [place], [address]. 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 [address] [facility] [facility] [address], [place], [place], [address] , [place]. tel:[phone] Subsqt Hosp-da E&m Stable 15 M [facility], [address] [address], [place], [place], [address], [place] tel:[phone] [facility] No Information Jun-0 9 Chris Romero. [address] [place] [address], [place], [place], [address] , [place]. tel:[phone] Referring Provider: Heather LEWIS, [address] [place] [address], [place], [address]. tel:[phone] Family History Family Member Type Diagnosis Age At Onset Brother Problem (finding) Diabetes mellitus Father Problem (finding) Alive and well Sister Problem (finding) Alive and well Brother Problem (finding) Obesity Mother Problem (finding) Alive and well Immunizations Vaccine Date Status Comments Pneumococcal conjugate vacci ne 20-valent (PCV20), polysaccharide [id number] conjugate, adjuvant, preservative free administered Note: MIIC [...] Treatment Date Type Action Status Referral Ordered: ERCP Appointment date/timeframe: 01/24/2022 ordered Referral Ordered: follow-up visit with ma, pancreas clinic in 2 months ordered Referral Ordered: follow-up visit with [facility] in 3 months ordered Referral Ordered: Colonoscopy Appointment date/timeframe: 12/27/2021 ordered Referral Ordered: Lipase Appointment date/timeframe: 04/05/2021 ordered Referral Ordered: Hepatic Function Panel Appointment date/timeframe: 04/05/2021 ordered Referral Ordered: CBC w/diff Appointment date/timeframe: 04/05/2021 ordered Referral Ordered: MRCP [...] he has also set up consult with commercial sales specialist.He reports continued smoking, although he has [...] he has had 2 ER visits to [facility] requiring hospitalization for acute pancreatitis.He reports [...] blood work and CT scan yesterday at [facility]. His white cell count was mildly elevated [...] in September when he was hospitalized at [facility]. At that time, his lipase was [...] n quitting alcohol. 2. Discussed complete avoidance intermediate card tender. 3. Reviewed MRI results; improving changes, need [...]
== END 2023-03-12 12:28 | disposition home or self-care (01) ==
LOC: AMB 03-18 05:42
PROVIDERS: PCP Family Medicine; Visit Provider Internal Medicine
DX: S06.371A Contusion, laceration, and hemorrhage of cerebellum with loss of consciousness of 30 minutes or less, initial encounter (principal)
CPT/HCPCS: A0425; A0428